=== PATIENT | male | born 1960 | race Hispanic/Latino ===

== ENCOUNTER 2017-10-04 09:49 | Day surgery (SDC) | payer MEDICARE, MEDICAID ==
[2017-10-04 11:49] LABS: Anion Gap 15 mmol/L (10-20); BUN (Urea Nitrogen) 14 mg/dL (8.4-25.7); Calc. Creatinine Clearance 0 mL/min (70-130); Calcium 8.6 mg/dL (7.8-10.44); Carbon Dioxide 21 mmol/L (22-29); Chloride 109 mmol/L (98-107); Estimated GFR-MDRD 89; Glucose 91 mg/dL (70-105); Potassium 4.5 mmol/L (3.5-5.1); Sodium 140 mmol/L (136-145)
--- NOTE | 2017-10-04 12:07 | RAD ---
CHEST 1 VIEW: Date: 10/04/17 HISTORY: Preop. COMPARISON: Chest radiograph dated 07/25/14. FINDINGS: Lungs are clear. No pneumothorax or effusion. Cardiac silhouette and mediastinal contours within norm al limits. IMPRESSION: No acute intrathoracic abnormality. POS: [facility]
[2017-10-04 12:37] LABS: #Basophils 0.1 thou/uL (0.0-0.2); #Eosinphils 1.4 thou/uL (0.0-0.7); #Lymphocytes 1.6 thou/uL (1.20-3.40); #Monocytes 0.4 thou/uL (0.11-0.59); #Neutrophils 4.4 thou/uL (1.40-6.50); %Basophils 1.1 % (0.0-1.0); %Eosinophils 17.8 % (0.0-10.0); %Lymphocytes 20.4 % (21.0-51.0); %Monocytes 5.4 % (0.0-10.0); %Neutrophils 55.3 % (42.0-75.0); Hemoglobin 11.8 g/dL (14.0-18.0); Mean Corpuscular HGB CONC 32.8 g/dL (32.0-36.0); Mean Corpuscular Hemoglobin 31.1 pg (27.0-31.0); Mean Corpuscular Volume 94.8 fL (78.0-98.0); Mean Platelet Volume 7.6 fL (7.4-10.4); Platelet Count 304 thou/uL (130-400)
[2017-10-04 14:50] LABS: Bilirubin Negative (Negative); Blood, Urine Negative (Negative); Clarity CLEAR (Clear); Glucose, Urine (Dipstick) Negative (Negative); Leukocyte Negative (Negative); Nitrite Negative (Negative); Protein, Urine (Dipstick) Negative (Neg-Trace); Specific Gravity, Urine 1.014 (1.002-1.036)
[2017-10-04 14:52] LABS: Bacteria/HPF None Seen HPF (None Seen); Hyaline Casts/LPF 0-3 HYALINE CAST LPF (0-3 Hyaline); Pathc Cast-AUWi Flag 0.29 (0-2.49); Squamous Epithelial 0-3 HPF (0-3); WBC/HPF 0-3 HPF (0-3)
[2017-10-04 15:03] LABS: RBC/HPF 0-3 HPF (0-3)
[2017-10-04] MEDS ORDERED: Betamet Acet/Betamet Na Ph 30 MG/5 ML VIAL ONE (16:14)
[2017-10-04] MEDS ORDERED: Bacitracin Zinc Ointment 30 gm TUBE ONE (16:14)
[2017-10-04] MEDS ORDERED: Bupivacaine PF 0.5% 30 ML VIAL ONE (16:14)
[2017-10-04] MEDS ORDERED: HYDROmorphone 2 MG/ML VIAL ONE (16:16)
[2017-10-04] MEDS ORDERED: Fentanyl 100 MCG/2 ML VIAL ONE (16:28)
[2017-10-04] MEDS ORDERED: HYDROcodone/Acetaminophen 5/325 mg Tablet ONE (18:44)
--- NOTE | 2017-10-05 04:06 | OP ---
PREOPERATIVE DIAGNOSES: Right carpal tunnel syndrome with previous surgery and probable scarring. FINDINGS: Very thick scar distal and central portion of transcarpal ligament with flattening, stippl ing and hourglass formation of the distal half of the median nerve at carpal canal, where the transca rpal ligament had regrown at the previous release. PROCEDURES PERFORMED: 1. Carpal tunnel release. 2. Median nerve neuroplasty proximal to the carpal tunnel in order to identify the nerve outside the carpal tunnel for release. 3. Tenotomy of the retinaculum. 4. Application of a neural wrap. 5. Celestone, the neural wrap was 10 mm x 4 cm. ESTIMATED BLOOD LOSS: 10 mL. TOURNIQUET TIME: 21 minutes. DESCRIPTION OF PROCEDURE: After successful general LMA technique, patient had the limb prepped and d raped. The patient had the surgery, indicated because he had recurrent carpal tunnel syndrome, faile d conservative treatment at the previous release in the patient, who has a weightbearing upper extrem ity due to lower extremity loss from multiple sclerosis. Timeout was done, appropriate limb was prepped and draped and the limb exsanguinated. He received pr eoperative antibiotics. The tourniquet was inflated to 250 mmHg pressure. We then outlined an incis ion approximately 2 cm proximal to the previous incision, so we could find the median nerve in a posi tion, where it was known to have dissected through the transcarpal ligament. This was important stef use the transcarpal ligament was so tight, the median nerve was compressed over 50% within the carpal canal and stippling was seen. So, the incision was completed to the volar wrist flexion crease and we identified the median n erve here, began to release and we noticed that as we entered into primary carpal canal. The transca rpal ligament had regrown, we were on to the palmaris and we then began to release to accomplish a Be aver blade and tenotomy scissors. Once we released it to the motor nerve, median takeoff point which was at the end of the tunnel, we began to inspect the nerve and found a 2 cm area of stippling, flat ness, and compression without hourglass formation. We then placed 3 mL of Celestone drip technique i n the nerve, dissect the ulnar nerve completely and then passed a previously soaked in normal saline, neural conduit and secured with three 6-0 Prolenes. The patient then had tourniquet deflated. Hemo stasis obtained. We then closed the wound using an interrupted 4-0 nylon in a mattress pattern, daniellei makenna. The patient had a bulky dressing applied. No splint, left the operating room with pink digi ts and 1-second refill.
--- NOTE | 2017-10-06 16:43 | EKG ---
Test Reason : PREOP Blood Pressure : / mmHG Vent. Rate : 080 BPM Atrial Rate : 080 BPM P-R Int : 136 ms QRS Dur : 084 ms QT Int : 414 ms P-R-T Axes : 069 047 067 degrees QTc Int : 477 ms Normal sinus rhythm Nonspecific T wave abnormality Prolonged QT Abnormal ECG Confirmed by LUIS ALFREDO HENRY ([id number]) on 10/06/2017 4:43:31 PM Referred By: RIDGE Confirmed By:LUIS ALFREDO HENRY
== END 2017-10-04 19:00 | disposition home or self-care (01) ==
LOC: SDC 09:49
PROVIDERS: ATTEND Orthopaedic Surgery Hand Surgery
PROC: 01N50ZZ Release Median Nerve, Open Approach (ICD-10-PCS; principal; 2017-10-04)
PROC: 0LN70ZZ Release Right Hand Tendon, Open Approach (ICD-10-PCS; 2017-10-04)
DX: G56.01 Carpal tunnel syndrome, right upper limb (principal); I10 Essential (primary) hypertension; E03.9 Hypothyroidism, unspecified; E78.5 Hyperlipidemia, unspecified
CPT/HCPCS: 36415; 71045; 80048; 81001; 85025; 93005; 93010; J0702; J1170; J3010; J3490; S0020

== ENCOUNTER 2018-02-01 07:40 | Emergency (ER) | payer MEDICARE, OTHER ==
[2018-02-01 09:03] LABS: #Eosinphils 0.5 thou/uL (0.0-0.7); #Lymphocytes 1.3 thou/uL (1.20-3.40); #Monocytes 0.4 thou/uL (0.11-0.59); #Neutrophils 13.5 thou/uL (1.40-6.50); %Basophils 0.2 % (0.0-1.0); %Eosinophils 3.4 % (0.0-10.0); %Lymphocytes 8.5 % (21.0-51.0); %Monocytes 2.3 % (0.0-10.0); %Neutrophils 85.6 % (42.0-75.0); Hemoglobin 11.3 g/dL (14.0-18.0); Mean Corpuscular HGB CONC 32.6 g/dL (32.0-36.0); Mean Corpuscular Hemoglobin 30.7 pg (27.0-31.0); Mean Corpuscular Volume 94.3 fL (78.0-98.0); Mean Platelet Volume 7.6 fL (7.4-10.4); Platelet Count 325 thou/uL (130-400); RBC Distribution Width 11.9 % (11.5-14.5); Red Blood Cell (RBC) Count 3.69 mill/uL (4.70-6.10); White Blood Cell (WBC) Count 15.7 thou/uL (4.8-10.8)
[2018-02-01 09:10] LABS: INR-International Normal Ratio 1.1; PTT 32.8 SEC (22.9-36.1); Prothrombin Time 14.7 SEC (12.0-14.7)
--- NOTE | 2018-02-01 09:21 | CT ---
HEAD CT WITHOUT CONTRAST: Date: 02/01/18 COMPARISON: 07/05/12. HISTORY: Bilateral extremity weakness. History of brain abscess and multiple sclerosis. FINDINGS: No parenchymal hemorrhage. No extra-axial hematoma. No midline shift. Basilar cisterns are patent. Ag e-appropriate brain volume. Stable malacic changes involving the left frontal lobe. Stable hypoattenu ation in the posterior right and anterior right centrum semiovale and wiley radiata. Calvarium is intact. Adequate aeration of the sinuses and mastoid air cells. IMPRESSION: No acute intracranial process. Given patient's history, further evaluation with brain MRI is recommen ded, utilizing a MS protocol. POS: [facility]
--- NOTE | 2018-02-01 09:24 | RAD ---
FRONTAL VIEW CHEST: Date: 02/01/18 COMPARISON: 10/04/17. INDICATION: Dyspnea. FINDINGS: The lungs are clear. There is no effusion or pneumothorax. Cardiac silhouette is stable, accentuated by portable technique. There is osseous degenerative change. IMPRESSION: No focal consolidation. POS: [facility]
[2018-02-01 09:35] LABS: ALT (SGPT) 12 U/L (8-55); AST (SGOT) 22 U/L (5-34); Albumin 3.6 g/dL (3.5-5.0); Alkaline Phosphatase 82 U/L (40-150); Anion Gap 11 mmol/L (10-20); BUN (Urea Nitrogen) 24 mg/dL (8.4-25.7); Bilirubin, Total 0.3 mg/dL (0.2-1.2); Calc. Creatinine Clearance 0 mL/min (70-130); Calcium 8.4 mg/dL (7.8-10.44); Carbon Dioxide 22 mmol/L (22-29); Chloride 107 mmol/L (98-107); Estimated GFR-MDRD 77; Globulin 3.2 g/dL (2.4-3.5); Glucose 101 mg/dL (70-105); Potassium 4.3 mmol/L (3.5-5.1); Protein, Total 6.8 g/dL (6.0-8.3); Sodium 136 mmol/L (136-145)
[2018-02-01] MEDS ORDERED: predniSONE 20 MG TAB ONE (11:12)
== END 2018-02-01 11:23 ==
LOC: ERS 07:40
DX: G35 Multiple sclerosis (principal); N40.0 Benign prostatic hyperplasia without lower urinary tract symptoms; E03.9 Hypothyroidism, unspecified; E78.5 Hyperlipidemia, unspecified; I10 Essential (primary) hypertension; F32.9 Major depressive disorder, single episode, unspecified; Z79.899 Other long term (current) drug therapy; Z79.82 Long term (current) use of aspirin
CPT/HCPCS: 36415; 70450; 71045; 80053; 83605; 83880; 84443; 84484; 85025; 85610; 85730; 93005; 96360; J7506

== ENCOUNTER 2018-02-27 08:15 | Outpatient (CLI) | payer MEDICARE, MEDICAID ==
--- NOTE | 2018-02-27 15:52 | MRI ---
MRI BRAIN NONCONTRAST: DATE: 02/27/18 HISTORY: 57-year-old male with G35 multiple sclerosis. COMPARISON: 07/06/12. FINDINGS: This was ordered as MRI with and without contrast, but patient refused to continue after the noncontr ast portion was performed. Again demonstrated is the high, upper left frontoparietal craniotomy defect, deep to which there is a moderate size region of upper posterior left frontal lobe encephalomalacia and gliosis. There is ass ociated focal ex vacuo dilation of the superior portion of the body of the left lateral ventricle. There are numerous bilateral small and moderate sized T2 hyperintense lesions (with central intermedi ate signal intensity) throughout the bilateral wiley radiata and centrum semiovale, consistent with late stage MS. Since no contrast was given, it is not possible to determine whether there are any act ively demyelinating lesions currently. There are two focal small demyelinating plaques in the left si de of the brainstem, more specifically in the left upper nayana. One is in the left facial colliculus. The other one is located slightly anterior to it, perhaps involving the facial nucleus. There is diffuse brain parenchymal atrophy. This includes diffusely thin corpus callosum which has di ffuse contiguous signal abnormality along its undersurface. There is no restricted diffusion. No evid ence of recent intra-axial hemorrhage. The lateral and third ventricles are mildly dilated on an ex v acuo basis due to the atrophy. Previously, there was a rim-enhancing right parietal intra-axial lesion that could have been a brain abscess, less likely tumefactive demyelinating plaque. That particular lesion has been replaced with a focus of encephalomalacia and gliosis. There is no mass effect, midline shift, or extra-axial fluid collection. IMPRESSION: 1. Evidence for late stage multiple sclerosis. 2. Moderate size area of post-surgical encephalomalacia and gliosis in the left upper frontal lobe, deep to a craniotomy defect. 3. No mass effect or acute hemorrhage. 4. Patient terminated the study prior to acquisition of postcontrast images. PHILIP Davis POS: [facility]
--- NOTE | 2018-02-27 15:55 | MRI ---
PRE AND POST CONTRAST ENHANCED MRI IMAGES THORACIC SPINE: Date: 02-27-18 Comparison: 09-27-08 FINDINGS: Pre and post contrast MRI of the thoracic spine demonstrate a right sided area of abnormal newly deve loped thickening in the right flavum. This was not present on the previous exam and appears to compre ss the right posterior aspect of the T1 spinal canal. This area does not demonstrate significant enha ncement and may be associated with calcified or noncalcified area of thickening. No evidence of acute thoracic spine fracture is seen. The central canal and neural foramen are patent . Areas of posterior cord atrophy and myelomalacia changes seen posterior to the T4-5 level as well as right T7-8 cord level. These areas were preserved on the patient's previous MRI from 09-27-08. No newly developed areas of cord enhancement seen. No other areas of spinal cord infarctions seen. IMPRESSION: Areas of myelomalacia changes seen within the midthoracic cord with area of newly developed ligamentu m flavum thickening in the right T1 level. POS: [facility]
--- NOTE | 2018-02-27 16:17 | MRI ---
MRI CERVICAL SPINE WITH AND WITHOUT CONTRAST: COMPARISON: 07/07/2012. TECHNIQUE: MRI cervical spine is performed with and without intravenous Gadolinium administration. Multisequent ial, multiplanar imaging is performed. FINDINGS: Appropriate T1 marrow signal intensity of the cervical vertebrae. There is stable vertebral body hei ght throughout the cervical spine. Mild loss of vertebral height at C6 is noted. No significant STI R hyperintensity to suggest an acute process. Stable anterior bridging osteophyte at C5-C6. Stable fusion changes at C3-C4. On the postcontrast images, there is no pathologic enhancement of the verte bral bodies. There is no abnormal enhancement of the visualized brain parenchyma. There is no abnormal enhancement of the visualized cervical cord. There is decreased volume with T2 hyperintensity involving the cervical cord starting at approximatel y the C3-C4 disk space and extending inferiorly to the level of the inferior end plate of C4. The ov erall extent of involvement is less than the previous examination. Previously, there was evident of active enhancement and cord expansion. Currently, there is volume loss without evidence of cord expa nsion. Additionally, there is abnormal signal intensity noted in the distal cervical cord and upper thoracic cord at the level of C7-T1. No associated enhancement. There are varying degrees of central canal stenosis and foraminal narrowing. C2-C3: No high-grade central canal stenosis. Right neural foramen is patent. Mild left foraminal n arrowing. C3-C4: BROAD-BASED disk-osteophyte ridge without significant central canal stenosis. Right neural f oramen is minimally narrowed. The left neural foramen is patent. C4-C5: There is a central osteophyte complex that abuts the thecal sac. No significant central naeem l stenosis. Neural foramina are patent. C5-C6: There is a central disk-osteophyte complex that effaces the ventral subarachnoid space. No s ignificant central canal stenosis. Foramen are patent. C6-C7: This is a central disk-osteophyte complex that effaces the ventral subarachnoid space. No si gnificant central canal stenosis. Foramen are patent. C7-T1: No high-grade central canal stenosis or high-grade neural foraminal narrowing. IMPRESSION: 1. Degenerative changes of the cervical spine as above. 2. Malacic changes with abnormal signal intensity of the cord at C3, C4, and C7-T1 levels as describ ed above. Findings favor components of malacia versus changes from remote areas of demyelination. C urrently, there is no cord enhancement or cord expansion to suggest active demyelination. POS: [facility]
--- NOTE | 2018-02-27 16:39 | MRI ---
MRI LUMBAR SPINE WITH AND WITHOUT CONTRAST: DATE: 02/27/18 HISTORY: 57-year-old male with G35 multiple sclerosis. COMPARISON: 09/26/08. TECHNIQUE: Multiple sequences obtained in axial and sagittal planes, pre and post IV injection of gadolinium-bas ed contrast agent: 20 mL MultiHance. FINDINGS: Urinary bladder is distended on the current study, unlike the prior. Vertebral body heights are maint ained. No bone marrow signal abnormality. For the purposes of this report, it will be assumed that th ere are five lumbar-type vertebrae. T2 hyperintensity within the intervertebral discs are present at almost all levels, most extensively involving T11-12, L2-3, and L5-S1; and more in a patchy, heteroge neous distribution at L1-2, L3-4, and L4-5. There are regions of patchy enhancement within the interv ertebral disc spaces, throughout all levels. There is no associated enhancement of the end plates, an d these represent extensive annular tears of the discs. There is no abnormal extramedullary-intradura l, or extradural, enhancement. No intramedullary enhancement in the visualized portions of the lower spinal cord. Conus medullaris terminates at T12. Spinal canal is diffusely small in caliber on a crystal enital basis due to developmentally short pedicles. This is exacerbated by lumbar spondylosis as desc ribed below. Degenerative right posterior element hypertrophy at T12 is only demonstrated on sagittal images. Axia l images were not obtained through this level. T12-L1: No central stenosis. Moderate right neural foraminal stenosis. Mild left neural foraminal st enosis. Bilateral moderate degenerative facet changes. L1-2: Mild diffuse disc bulge-osteophytic bar complex. Disc-osteophyte complex is larger at the righ t paracentral and right lateral area, which mildly effaces the ventral aspect of the thecal sac. Mild central stenosis. Mild to moderate right neural foraminal stenosis. No significant left neural saeid inal stenosis. No interval change. L2-3: The previously prominent posterior epidural fat pad has slightly involuted. This has resulted in slight interval increase in the caliber of the thecal sac, which is currently moderately stenotic. Indentation of the thecal sac by central disc-osteophyte complex. Mild to moderate central spinal ca nal stenosis. No high grade neural foraminal stenosis. L3-4: Diffuse disc bulge/broad osteophytic bar complex indents the ventral surface of the thecal sac . Mildly prominent posterior epidural fat pad. Moderate central spinal canal stenosis. Moderate to se corazon thecal sac stenosis. Moderate right neural foraminal stenosis. Moderate to severe left neural fo raminal stenosis is worse than previously. L4-5: Prominent diffuse disc bulge-osteophytic bar complex indents the ventral aspect of the spinal canal. Moderate bilateral ligamentum flavum thickening and degenerative facet hypertrophy. Moderate t o severe central spinal canal stenosis. Prominent posterior epidural fat pad. Severe thecal sac steno sis. Moderate to severe bilateral neural foraminal stenosis, right greater than left. Neural foramina l stenosis is worse than previously. Degree of central spinal canal stenosis is similar. Moderate robert ateral degenerative facet changes. L5-S1: No central stenosis. No neural foraminal stenosis. IMPRESSION: 1. Lumbar spondylosis with multilevel moderate degenerative disc disease and facet osteoarthrosis. 2. Multilevel central and neural foraminal stenosis of varying degrees. 3. Severe thecal sac stenosis at L4-5. 4. Distended urinary bladder. 5. No abnormal intradural enhancement. JN R POS: [facility]
[2018-02-27] MEDS ORDERED: Gadobenate Dimeglumine 529 MG/1 ML (20ML VIAL) ONE (16:59)
[2018-03-01] MEDS ORDERED: Gadobenate Dimeglumine 529 MG/1 ML (20ML VIAL) ONE (16:59)
== END 2018-02-27 08:16 | disposition home or self-care (01) ==
LOC: MRI 08:15 → EDSTATUS 09:15
PROVIDERS: ATTEND Nurse Practitioner Acute Care
DX: G35 Multiple sclerosis (principal); M47.816 Spondylosis without myelopathy or radiculopathy, lumbar region; M51.36 Other intervertebral disc degeneration, lumbar region; M48.061 Spinal stenosis, lumbar region without neurogenic claudication; N32.89 Other specified disorders of bladder; M47.812 Spondylosis without myelopathy or radiculopathy, cervical region; G95.89 Other specified diseases of spinal cord; G93.89 Other specified disorders of brain; Z98.890 Other specified postprocedural states
CPT/HCPCS: 70551; 70553; 72156; 72157; 72158

== ENCOUNTER 2018-06-02 20:52 | Emergency (ER) | payer MEDICARE, MEDICAID ==
[2018-06-02 21:29] LABS: #Basophils 0.1 thou/uL (0.0-0.2); #Eosinphils 0.4 thou/uL (0.0-0.7); #Monocytes 0.4 thou/uL (0.11-0.59); #Neutrophils 4.5 thou/uL (1.40-6.50); %Basophils 1.1 % (0.0-1.0); %Lymphocytes 27.6 % (21.0-51.0); %Monocytes 4.8 % (0.0-10.0); %Neutrophils 61.5 % (42.0-75.0); Hemoglobin 11.8 g/dL (14.0-18.0); Mean Corpuscular HGB CONC 31.9 g/dL (32.0-36.0); Mean Corpuscular Hemoglobin 29.9 pg (27.0-31.0); Mean Corpuscular Volume 93.6 fL (78.0-98.0); Mean Platelet Volume 7.3 fL (7.4-10.4); Platelet Count 454 thou/uL (130-400); RBC Distribution Width 12.1 % (11.5-14.5); Red Blood Cell (RBC) Count 3.95 mill/uL (4.70-6.10); White Blood Cell (WBC) Count 7.3 thou/uL (4.8-10.8)
--- NOTE | 2018-06-02 21:36 | RAD ---
XR Chest 1 View Portable HISTORY: Chest pain COMPARISON: 02/01/2018 FINDINGS: The heart size is normal. The lungs are well expanded without focal areas of consolidation, pneumothorax or pleural effusions. IMPRESSION: No radiographic evidence of acute cardiopulmonary process.
[2018-06-02 21:48] LABS: ALT (SGPT) 12 U/L (8-55); AST (SGOT) 18 U/L (5-34); Albumin 3.8 g/dL (3.5-5.0); Alkaline Phosphatase 92 U/L (40-150); Anion Gap 12 mmol/L (10-20); BUN (Urea Nitrogen) 19 mg/dL (8.4-25.7); Bilirubin, Total 0.2 mg/dL (0.2-1.2); Calc. Creatinine Clearance 0 mL/min (70-130); Calcium 8.9 mg/dL (7.8-10.44); Carbon Dioxide 26 mmol/L (22-29); Chloride 107 mmol/L (98-107); Estimated GFR-MDRD 80; Globulin 3.7 g/dL (2.4-3.5); Glucose 96 mg/dL (70-105); Potassium 4.3 mmol/L (3.5-5.1); Protein, Total 7.5 g/dL (6.0-8.3); Sodium 141 mmol/L (136-145)
== END 2018-06-03 00:27 ==
LOC: ERS 20:52
DX: R07.9 Chest pain, unspecified (principal); N40.0 Benign prostatic hyperplasia without lower urinary tract symptoms; E03.9 Hypothyroidism, unspecified; E78.5 Hyperlipidemia, unspecified; I10 Essential (primary) hypertension; F32.9 Major depressive disorder, single episode, unspecified; Z79.899 Other long term (current) drug therapy; Z79.01 Long term (current) use of anticoagulants; Z79.82 Long term (current) use of aspirin
CPT/HCPCS: 71045; 80053; 84484; 85025; 93005

== ENCOUNTER 2018-11-26 02:51 | Emergency (ER) | payer MEDICARE, OTHER ==
[2018-11-26 03:46] LABS: #Basophils 0.1 thou/uL (0.0-0.2); #Eosinphils 0.3 thou/uL (0.0-0.7); #Lymphocytes 1.1 thou/uL (1.20-3.40); #Monocytes 0.4 thou/uL (0.11-0.59); #Neutrophils 3.5 thou/uL (1.40-6.50); %Lymphocytes 21.5 % (21.0-51.0); %Monocytes 7.5 % (0.0-10.0); %Neutrophils 64.9 % (42.0-75.0); Hemoglobin 11.5 g/dL (14.0-18.0); Mean Corpuscular HGB CONC 33.1 g/dL (32.0-36.0); Mean Corpuscular Hemoglobin 31.2 pg (27.0-31.0); Mean Corpuscular Volume 94.1 fL (78.0-98.0); Platelet Count 339 thou/uL (130-400); RBC Distribution Width 12.6 % (11.5-14.5); Red Blood Cell (RBC) Count 3.68 mill/uL (4.70-6.10); White Blood Cell (WBC) Count 5.3 thou/uL (4.8-10.8)
[2018-11-26] MEDS ORDERED: Ondansetron PF 4 MG/2 ML Vial ONE (03:52)
[2018-11-26 04:04] LABS: ALT (SGPT) 15 U/L (8-55); AST (SGOT) 26 U/L (5-34); Albumin 3.8 g/dL (3.5-5.0); Alkaline Phosphatase 75 U/L (40-110); Anion Gap 11 mmol/L (10-20); BUN (Urea Nitrogen) 32 mg/dL (8.4-25.7); Bilirubin, Total 0.2 mg/dL (0.2-1.2); Calc. Creatinine Clearance 0 mL/min (70-130); Carbon Dioxide 27 mmol/L (22-29); Chloride 104 mmol/L (98-107); Estimated GFR-MDRD 90; Globulin 3.5 g/dL (2.4-3.5); Glucose 101 mg/dL (70-105); Magnesium 2.2 mg/dL (1.6-2.6); Potassium 3.7 mmol/L (3.5-5.1); Protein, Total 7.3 g/dL (6.0-8.3); Sodium 138 mmol/L (136-145)
--- NOTE | 2018-11-26 09:59 | CT ---
PRELIMINARY REPORT/[facility]/EMERGENCY AFTER HOURS PROCEDURE: PROCEDURE INFORMATION: Exam: CT Abdomen And Pelvis With Contrast Exam date and time: 11/26/2018 4:19 AM Clinical history: 58 years old, male; Abdominal pain; Prior surgery; Surgery type: Cholecystectomy; P atient HX: Er 13. M58 w/ HX of ms presents to the ED for evaluation of nausea, vomiting, diarrhea x 5 days. PT states diarrhea is non stop. PT states his last episode of vomiting was today. PT also rep orts abdominal distention. TECHNIQUE: Imaging protocol: Computed tomography of the abdomen and pelvis with intravenous contrast. COMPARISON: No relevant prior studies available. FINDINGS: Liver: Normal. No mass. Gallbladder and bile ducts: Prior cholecystectomy. Pancreas: Normal. No ductal dilation. Spleen: Normal. No splenomegaly. Adrenals: Normal. No mass. Kidneys and ureters: Normal. No hydronephrosis. Stomach and bowel: Fluid throughout the lumen of the distal small bowel and colon, nondilated, sugges ting gastroenteritis or malabsorption. No bowel wall thickening or intestinal obstruction. Appendix: Normal appendix. Intraperitoneal space: No pneumoperitoneum or abscess. Vasculature: No pneumatosis or portal/mesenteric venous gas. Lymph nodes: Mildly prominent bilateral inguinal lymph nodes do not exceed 1 cm in short axis. Bladder: Unremarkable as visualized. Reproductive: Unremarkable as visualized. Bones/joints: Unremarkable. No acute fracture. Soft tissues: Small umbilical hernia containing fat only. IMPRESSION: Fluid throughout the lumen of the distal small bowel and colon, nondilated, suggesting gastroenteriti s or malabsorption. Thank you for allowing us to participate in the care of your patient. Dictated and Authenticated by: Angel Owens MD 11/26/2018 4:58 AM Central Time ([place] & [place]) FINAL REPORT EMERGENCY AFTER HOURS STUDY CT ABDOMEN WITH CONTRAST CT PELVIS WITH CONTRAST: DATE: 11/26/2018. HISTORY: 58-year-old male with nausea, vomiting, and diarrhea. TECHNIQUE: IV injection of iodinated contrast media: Administered. Oral contrast media:Not administered. FINDINGS: Liver: No focal solid mass. Spleen: No splenomegaly.. Pancreas: No mass or surrounding fat stranding.. Adrenals: No mass.. Kidneys: No hydronephrosis or enhancement abnormalities.. 4 x 2 x 2 mm calculus at left renal lower p ole calyx. Ureters: No dilation. Bladder: No pathology identified. Abdominal aorta: No aneurysm. Small bowel: No dilation. Intraluminal fluid. Colon: No adjacent fat stranding. Appendix: No dilation or adjacent fat stranding.. No mural thickening. Intraluminal fluid. Free air: None. Free fluid: None. Agree with preliminary report by [facility]. IMPRESSION: 1. No major pathology identified.. 2. Mild nephrolithiasis consisting of a single tiny 4 x 2 x 2 mm calculus in the left kidney. 3. Fluid throughout bowel: Malabsorption, perhaps due to gastroenteritis. Transcribed Date/Time: 11/26/2018 10:10 AM
== END 2018-11-26 06:15 | disposition home or self-care (01) ==
LOC: ERS 02:51
DX: K52.9 Noninfective gastroenteritis and colitis, unspecified (principal); I10 Essential (primary) hypertension; E78.5 Hyperlipidemia, unspecified; F32.9 Major depressive disorder, single episode, unspecified; Z79.899 Other long term (current) drug therapy; Z79.01 Long term (current) use of anticoagulants; Z79.82 Long term (current) use of aspirin
CPT/HCPCS: 36415; 74177; 80053; 83735; 85025; 96361; 96374; J2405

== ENCOUNTER 2018-12-13 13:43 | Observation (INO) | payer MEDICARE, OTHER ==
[2018-12-13 14:33] LABS: Hemoglobin 11.1 g/dL (14.0-18.0); Mean Corpuscular HGB CONC 32.7 g/dL (32.0-36.0); Mean Corpuscular Hemoglobin 29.9 pg (27.0-31.0); Mean Corpuscular Volume 91.5 fL (78.0-98.0); Platelet Count 359 thou/uL (130-400); RBC Distribution Width 12.3 % (11.5-14.5); White Blood Cell (WBC) Count 19.2 thou/uL (4.8-10.8)
[2018-12-13 14:42] LABS: ALT (SGPT) 16 U/L (8-55); AST (SGOT) 28 U/L (5-34); Albumin 3.9 g/dL (3.5-5.0); Alkaline Phosphatase 77 U/L (40-110); Anion Gap 13 mmol/L (10-20); BUN (Urea Nitrogen) 24 mg/dL (8.4-25.7); Bilirubin, Total 0.3 mg/dL (0.2-1.2); Calc. Creatinine Clearance 0 mL/min (70-130); Calcium 8.6 mg/dL (7.8-10.44); Carbon Dioxide 24 mmol/L (22-29); Chloride 101 mmol/L (98-107); Estimated GFR-MDRD 59; Globulin 3.4 g/dL (2.4-3.5); Glucose 97 mg/dL (70-105); Potassium 4.5 mmol/L (3.5-5.1); Protein, Total 7.3 g/dL (6.0-8.3); Sodium 133 mmol/L (136-145)
[2018-12-13 14:43] LABS: Band 45 % (5-11); Lymphocytes 8 % (21-51); MDiff Complete? YES; Monocytes 7 % (0-10); Neutrophil 40 % (42-75); Platelet Morphology Comment Appears Adequate; Polychromasia SLIGHT = 2-3 cells (100X) (0-2/hpf); Reflex for Review?? YES
--- NOTE | 2018-12-13 15:53 | RAD ---
XR Chest 1 View Portable History: Emergency exam. Comparison: Chest radiograph May 2018 Findings: Lungs are clear. No pneumothorax or effusion. Cardiac silhouette and mediastinal contours a re within normal limits. Right rotator cuff arthropathy. Impression: No acute intrathoracic abnormality.
[2018-12-13 16:48] LABS: Bacteria/HPF 4+ HPF (None Seen); Bilirubin Negative (Negative); Blood, Urine Negative (Negative); Clarity Turbid (Clear); Glucose, Urine (Dipstick) Normal (Negative); Leukocyte 75 Leu/uL (Negative); Nitrite Negative (Negative); Protein, Urine (Dipstick) 20 mg/dL (Neg-Trace); RBC/HPF 0-3 HPF (0-3); Squamous Epithelial 0-3 HPF (0-3)
[2018-12-13] MEDS ORDERED: Piperacillin/Tazobactam 4.5 GM VIAL ONE (17:54)
[2018-12-13 19:40] VITALS: BMI 34.6
[2018-12-13] MEDS ORDERED: Acetaminophen 325 MG TAB PO PRN (20:21)
[2018-12-13] MEDS ORDERED: Senokot S 8.6-50 MG TAB PO PRN (20:21)
[2018-12-13] MEDS ORDERED: Ondansetron ODT 4 MG TAB PO PRN (20:21)
[2018-12-13] MEDS: Vancomycin 1.5 GRAM/300 ML BAG 1.5 GM in Premix Bag 1 BAG IVPB SCH (20:48)
[2018-12-13] MEDS ORDERED: diphenhydrAMINE 25 MG CAP PO PRN (20:50)
[2018-12-13] MEDS ORDERED: Simethicone Chewable 80 MG TAB PO PRN (20:50)
[2018-12-13] MEDS ORDERED: Cepastat Lozenges 1 LOZ PO PRN (20:50)
[2018-12-13] MEDS ORDERED: AZELASTINE HCL EA EYE SCH (21:00)
[2018-12-13] MEDS: Fenofibrate Nanocrystallized 145 MG TAB PO SCH (21:42)
[2018-12-13] MEDS: Diclofenac Sodium 50 MG DR TAB PO SCH (21:43)
[2018-12-13] MEDS: Pravastatin Sodium 40 MG TAB PO SCH (21:43)
[2018-12-13] MEDS: Ezetimibe 10 MG TAB PO SCH (21:43)
[2018-12-13] MEDS: Famotidine 20 MG TAB PO SCH (21:43)
[2018-12-13] MEDS: Escitalopram Oxalate 20 mg Tablet PO SCH (21:43)
[2018-12-13] MEDS: Baclofen 10 MG TAB PO SCH (21:43)
[2018-12-13] MEDS: Apixaban 5 MG TAB PO SCH (21:44)
[2018-12-13] MEDS: carBAMazepine 200 MG TAB PO SCH (21:44)
[2018-12-13] MEDS: cycloSPORINE 0.05% Ophthalmic Droperette EA EYE SCH (21:51)
[2018-12-13] MEDS: Artificial Tears 18 DROP/0.9 ML EA EYE SCH (22:06)
[2018-12-13] MEDS ORDERED: Sodium Chloride 0.9% 1,000 ML IV SCH (23:00)
[2018-12-13] MEDS: Piperacillin/Tazobactam 4.5 GM in Sodium Chloride 0.9% 100 ML IVPB SCH (23:35)
[2018-12-13] MEDS: Gabapentin 300 MG CAP PO SCH (23:35)
--- NOTE | 2018-12-14 00:29 | HP ---
PRIMARY CARE PHYSICIAN: Dr. Boucher. NEUROLOGIST: Dr. Jean. CHIEF COMPLAINT: Weakness, nausea. HISTORY OF PRESENT ILLNESS: Mr. Aceves is a 58-year-old man who is a resident of [facility], reports that he got up as usual this morning, was not felt well, but he got up, uses a wheelchair for ambulation. Reports that he usually insists the MA to get dressed. He got in his wheelchair, was going down to the cafeteria for breakfast. Reports that he felt generally weak, a little nauseous, felt like he was going to "pass out." Made it into the dining room, was sitting and having breakfast and reports that some of the people around him said that he did not look well. Nurse came over and checked him out, asked him 1 or 2 questions and then called EMS. The patient has past medical history pertinent for BPH, brain abscess, umbilical hernia, hypothyroidism, hyperlipidemia, hypertension, multiple sclerosis, generalized seizures, trigeminal neuralgia, carpal tunnel on the right, hypertension. He denied any really specific complaints other than generalized weakness and was given some Zofran by EMS on the way here and reports that it resolved the nausea. Denies any abdominal pain, vomiting, constipation, or diarrhea. On evaluation here, UA with turbid with leukocytes, white blood cells, and +4 bacteria. Chest x-ray was done, showed no acute process. Troponin undetectable. Magnesium 2. CK at 205. However, the white blood cell count was 19.2, hemoglobin 11.1, hematocrit 33.8, neutrophils 40, bands 45, leukocytes 8. Sodium at 133, otherwise chemistry was unremarkable. The patient was given some Zosyn in the emergency room and admitted to the medical floor for further management. REVIEW OF SYSTEMS: The patient reports generalized weakness. Denies any abdominal pain, constipation, or diarrhea. Does report some nausea. Denies vomiting. Denies any focal numbness, tingling, weakness in any of his extremities. Reports that he just feels "ill." All systems are reviewed and are negative unless mentioned in the HPI. PAST MEDICAL HISTORY: Please see HPI. PAST SURGICAL HISTORY: Craniotomy, cholecystectomy, neck surgery, right shoulder surgery, carpal tunnel. PSYCHIATRIC HISTORY: Depression. SOCIAL HISTORY: Lives in [facility]. Denies any alcohol or drug use. No smoking history. ALLERGIES: MOE INHIBITORS. CURRENT MEDICATIONS: 1. Tylenol 1000 mg p.o. q.6 hours as needed. 2. Eliquis 5 mg p.o. b.i.d. 3. Artificial Tears two drops each eye q.i.d. 4. Aspirin 325 mg p.o. daily. 5. Azelastine 0.05% ophthalmic solution one drop each eye b.i.d. 6. Baclofen 10 mg p.o. b.i.d. 7. Cepastat one lozenge q.i.d. p.r.n. 8. Diclofenac 50 mg p.o. t.i.d. 9. Benadryl 25 mg p.o. q.6 hours p.r.n. 10. Surfak 240 mg p.o. daily. 11. Lexapro 20 mg p.o. at bedtime. 12. Aptiom 400 mg p.o. daily. 13. Zetia 10 mg p.o. at bedtime. 14. Fenofibrate 145 mg p.o. at bedtime. 15. Neurontin 600 mg p.o. q.6 hours. 16. Robitussin DM 10 mL p.o. q.6 hours as needed. 17. Hydrocortisone ointment 0.5% topical daily as needed. 18. Motrin 400 mg p.o. b.i.d. p.r.n. 19. Tirosint 25 mcg p.o. daily. 20. Loperamide 2 mg p.o. q.i.d. 21. Milk of magnesia 30 mL p.o. daily p.r.n. 22. Multivitamin one capsule p.o. daily. 23. Nystatin one application p.o. topical b.i.d. 24. Pataday one drop each eye p.o. daily p.r.n. 25. Zofran 4 mg p.o. q.8 hours p.r.n. 26. Vaseline one application topically daily p.r.n. 27. Pravastatin 40 mg p.o. at bedtime. 28. Restasis one drop each eye b.i.d. 29. Simethicone 80 mg p.o. q.i.d. p.r.n. 30. Verapamil SR 360 mg p.o. at bedtime. 31. Avodart 0.5 mg p.o. daily. PHYSICAL EXAMINATION: VITAL SIGNS: Blood pressure 136/77, pulse is 90, respirations are 18, temperature is 98.5, pO2 sats are 97% on room air. CONSTITUTIONAL: The patient appears pain free. He is alert and oriented to person, place, and time. HEENT: Head is atraumatic and normocephalic. Eyes, pupils are equally round and reactive to light. Extraocular muscles are intact. ENT, mouth exam is normal. Mucous membranes are moist. NECK: Trachea is midline. No tenderness. RESPIRATORY/CHEST: Breath sounds are clear. Chest expansion is equal. CARDIOVASCULAR: Heart rate is regular rate and rhythm. Heart sounds are normal. ABDOMEN: Nontender. Has a small easily reducible umbilical hernia. Bowel sounds are heard. BACK: Normal range of motion. Has a stage I decubitus ulcer, sacral. EXTREMITIES: Upper extremities; normal range of motion, motor strength is normal, radial pulses are normal. Lower extremities; normal range of motion, motor strength is normal, pedal pulses are normal. NEUROLOGICAL: The patient is oriented to person, place, and time. Speech is normal. SKIN: Warm and dry in color. Stage I decubitus as stated above. LABORATORY DATA: EKG in the emergency room shows normal sinus rhythm, beats per minute 85. ST segments are normal. T-waves are nonspecific. Hawi is normal. ASSESSMENT AND PLAN: 1. Generalized weakness with leukocytosis. Zosyn was started in the emergency room. Possibility of a urinary tract infection. We will do broad-spectrum coverage for now. Blood cultures and urine cultures are pending. Zosyn and vancomycin could deescalate as cultures return. Lactic acid is 1.3. CBC and comprehensive metabolic panel in the morning. 2. Multiple sclerosis. Last MRI done in February 2018 shows later stages of multiple sclerosis. We will repeat the brain MRI in the a.m. looking for a multiple sclerosis flare and ask Neurology, Dr. Jean to consult. The patient sees Dr. Jean as an outpatient basis. He reports he does not take any medications for it currently. Does have some baclofen for some relief of the muscles spasms. 3. Hyperlipidemia. We will restart home medications. 4. Hypothyroidism. We will check a TSH. Restart home medications. 5. Hypertension. Restart home medications. 6. Generalized seizure disorder. Restart home medications. Appears stable. We will monitor. 7. Deep venous thrombosis and gastrointestinal prophylaxis have been started. Case discussed with Dr. Borges who agrees with plan. Clinical course dependent on clinical findings. Job ID: [id number]
[2018-12-14 05:36] LABS: #Eosinphils 0.4 thou/uL (0.0-0.7); #Lymphocytes 2.1 thou/uL (1.20-3.40); #Monocytes 0.3 thou/uL (0.11-0.59); #Neutrophils 9.8 thou/uL (1.40-6.50); %Basophils 0.3 % (0.0-1.0); %Eosinophils 2.8 % (0.0-10.0); %Lymphocytes 16.6 % (21.0-51.0); %Monocytes 2.7 % (0.0-10.0); %Neutrophils 77.7 % (42.0-75.0); Hemoglobin 9.9 g/dL (14.0-18.0); Mean Corpuscular HGB CONC 32.1 g/dL (32.0-36.0); Mean Corpuscular Hemoglobin 30.2 pg (27.0-31.0); Mean Corpuscular Volume 93.9 fL (78.0-98.0); Mean Platelet Volume 6.8 fL (7.4-10.4); Platelet Count 322 thou/uL (130-400); RBC Distribution Width 12.2 % (11.5-14.5); Red Blood Cell (RBC) Count 3.27 mill/uL (4.70-6.10); White Blood Cell (WBC) Count 12.6 thou/uL (4.8-10.8)
[2018-12-14] MEDS: Piperacillin/Tazobactam 4.5 GM in Sodium Chloride 0.9% 100 ML IVPB SCH ×3 (05:39→18:01)
[2018-12-14] MEDS: Gabapentin 300 MG CAP PO SCH ×3 (05:39→18:02)
[2018-12-14 06:02] LABS: ALT (SGPT) 16 U/L (8-55); AST (SGOT) 32 U/L (5-34); Albumin 3.3 g/dL (3.5-5.0); Alkaline Phosphatase 65 U/L (40-110); Anion Gap 15 mmol/L (10-20); BUN (Urea Nitrogen) 30 mg/dL (8.4-25.7); Bilirubin, Total 0.2 mg/dL (0.2-1.2); Calc. Creatinine Clearance 82 mL/min (70-130); Calcium 8.1 mg/dL (7.8-10.44); Carbon Dioxide 24 mmol/L (22-29); Chloride 104 mmol/L (98-107); Estimated GFR-MDRD 53; Globulin 3.7 g/dL (2.4-3.5); Glucose 109 mg/dL (70-105); Sodium 138 mmol/L (136-145)
[2018-12-14] MEDS ORDERED: guaiFENesin/Dextromethorphan 10 ML UDCUP PO PRN (08:15)
[2018-12-14] MEDS ORDERED: HYDROCORTISONE TOP PRN (08:15)
[2018-12-14] MEDS ORDERED: Acetaminophen 325 MG TAB PO PRN (08:15)
[2018-12-14] MEDS ORDERED: Milk Of Magnesia 30 ML UDCUP PO PRN (08:15)
[2018-12-14] MEDS ORDERED: Hydrocortisone 1% Cream 30 GM TUBE TOP PRN (08:27)
[2018-12-14] MEDS: Levothyroxine Sodium 25 MCG TAB PO SCH (08:28)
[2018-12-14] MEDS ORDERED: Nystatin Ointment 15 GM TUBE TOP SCH (09:00)
[2018-12-14] MEDS ORDERED: Ketotifen Fumarate 0.025% Ophth Soln 5 ml Bottle EA EYE PRN (09:00)
[2018-12-14] MEDS ORDERED: PATIENT'S HOME MEDICATION PO SCH (09:00)
[2018-12-14] MEDS: Vancomycin 1.5 GRAM/300 ML BAG 1.5 GM in Premix Bag 1 BAG IVPB SCH ×2 (09:21→20:25)
[2018-12-14] MEDS: Aspirin 325 mg Enteric Coated Tablet PO SCH (09:22)
[2018-12-14] MEDS: Baclofen 10 MG TAB PO SCH ×2 (09:22→20:31)
[2018-12-14] MEDS: carBAMazepine 200 MG TAB PO SCH ×2 (09:22→20:29)
[2018-12-14] MEDS: Dutasteride 0.5 MG CAP PO SCH (09:22)
[2018-12-14] MEDS: Artificial Tears 18 DROP/0.9 ML EA EYE SCH ×4 (09:23→20:32)
[2018-12-14] MEDS: Apixaban 5 MG TAB PO SCH ×2 (09:23→20:29)
[2018-12-14] MEDS: Famotidine 20 MG TAB PO SCH ×2 (09:23→20:30)
[2018-12-14] MEDS: Diclofenac Sodium 50 MG DR TAB PO SCH ×3 (09:23→20:33)
[2018-12-14] MEDS: Multivit, Therapeutic 1 TAB PO SCH (09:26)
[2018-12-14] MEDS: Nystatin Ointment 15 GM TUBE TOP SCH ×2 (09:27→22:00)
--- NOTE | 2018-12-14 11:12 | PDOC.HOSPP ---
- Subjective Encounter Date: 12/14/18 Encounter Time: 08:00 - Objective Vital Signs & Weight: Vital Signs (12 hours) Temp Pulse Resp BP Pulse Ox 12/14/18 08:00 98.1 F 90 22 H 119/67 93 L 12/14/18 05:00 97.7 F 75 16 112/69 92 L 12/14/18 00:00 97.6 F 80 16 120/64 96 Weight Weight 220 lb 14.4 oz I&O: 12/13/18 12/14/18 12/15/18 06:59 06:59 06:59 Intake Total 5 Balance 2135 Result Diagrams: 12/14/18 05:24 12/14/18 05:24 Radiology Reviewed by me: Yes Hospitalist ROS - Review of Systems Constitutional: denies: fever, chills, sweats, weakness, malaise, other Eyes: denies: pain, vision change, conjunctivae inflammation, eyelid inflammation, redness, other ENT: denies: ear pain, ear discharge, nose pain, nose discharge, nose congestion , mouth pain, mouth swelling, throat pain, throat swelling, other Respiratory: denies: cough, dry, shortness of breath, hemoptysis, SOB with excertion, pleuritic pain, sputum, wheezing, other Cardiovascular: denies: chest pain, palpitations, orthopnea, paroxysmal noc. dyspnea, edema, light headedness, other Gastrointestinal: reports: abdominal pain. denies: nausea, vomiting, diarrhea, constipation, melena, hematochezia, other Genitourinary: denies: dysuria, frequency, incontinence, hematuria, retention, other Musculoskeletal: denies: neck pain, shoulder pain, arm pain, back pain, hand pain, leg pain, foot pain, other Skin: denies: rash, lesions, aylin, bruising, other - Medication Medications: Active Medications Generic Name Dose Route Start Last Admin Trade Name Freq PRN Reason Stop Dose Admin Apixaban 5 mg 12/13/18 21:00 12/14/18 09:23 Eliquis PO 5 mg BID DONNY Administration Artificial Tears 2 drop 12/13/18 21:00 12/14/18 09:23 Tears Naturale EA EYE 2 drop QID DONNY Administration Aspirin 325 mg 12/14/18 09:00 12/14/18 09:22 Ecotrin PO 325 mg DAILY DONNY Administration Baclofen 10 mg 12/13/18 21:00 12/14/18 09:22 Lioresal PO 10 mg BID DONNY Administration Carbamazepine 400 mg 12/13/18 21:00 12/14/18 09:22 Tegretol PO 400 mg BID DONNY Administration Cyclosporine 0 ml 12/13/18 21:00 12/13/18 21:51 Restasis EA EYE 0.4 ml BID DONNY Administration Diclofenac Sodium 50 mg 12/13/18 21:00 12/14/18 09:23 Voltaren PO 50 mg TID DONNY Administration Dutasteride 0.5 mg 12/14/18 09:00 12/14/18 09:22 Avodart PO 0.5 mg DAILY DONNY Administration Ezetimibe 10 mg 12/13/18 21:00 12/13/18 21:43 Zetia PO 10 mg HS DONNY Administration Escitalopram Oxalate 20 mg 12/13/18 21:00 12/13/18 21:43 Lexapro PO 20 mg HS DONNY Administration Famotidine 20 mg 12/13/18 21:00 12/14/18 09:23 Pepcid PO 20 mg BID DONNY Administration Fenofibrate 145 mg 12/13/18 21:00 12/13/18 21:42 Tricor PO 145 mg HS DONNY Administration Gabapentin 600 mg 12/13/18 23:59 12/14/18 05:39 Neurontin PO 600 mg Q6HR DONNY Administration Piperacillin Sod/Tazobactam 100 mls @ 200 mls/hr 12/13/18 23:59 12/14/18 05: 39 Sod 4.5 gm/ Sodium Chloride IVPB 100 mls Q6HR DONNY Administration VANCOMYCIN 1.5 GRAM/300 ML BAG 300 mls @ 200 mls/hr 12/13/18 20:00 12/14/18 09:21 1.5 gm/ Device IVPB 300 mls 0800,2000 DONNY Administration Sodium Chloride 1,000 mls @ 75 mls/hr 12/13/18 23:00 12/13/18 23:39 Normal Saline 0.9% IV 12/14/18 12:19 1,000 mls .[id number] DONNY Administration Levothyroxine Sodium 25 mcg 12/14/18 09:00 12/14/18 08:28 Synthroid PO 25 mcg DAILY DONNY Administration Multivitamins 1 tab 12/14/18 09:00 12/14/18 09:26 Theragran PO 1 tab DAILY DONNY Administration Nystatin 0 gm 12/14/18 09:00 12/14/18 09:27 Mycostatin Ointment TOP 1 applic BID DONNY Administration Pravastatin Sodium 40 mg 12/13/18 21:00 12/13/18 21:43 Pravachol PO 40 mg HS DONNY Administration Verapamil HCl 360 mg 12/13/18 21:00 12/13/18 21:42 Calan Er PO 360 mg HS DONNY Administration - Exam General Appearance: NAD, awake alert Eye: PERRL, anicteric sclera ENT: normocephalic atraumatic, no oropharyngeal lesions Neck: supple, symmetric, no JVD, no thyromegaly Heart: RRR, no murmur, no gallops, no rubs Respiratory: CTAB, no wheezes, no rales, no ronchi Gastrointestinal: soft, non-distended, normal bowel sounds, no palpable masses, no hepatomegaly Gastrointestinal - other findings: discomfort, periumbilical hernia Extremities: no cyanosis, no clubbing, no edema Skin: normal turgor, no lesions Neurological: no new deficit Musculoskeletal: normal tone, normal strength Psychiatric: normal affect, normal behavior Hosp A/P (1) Bandemia Code(s): D72.825 - BANDEMIA Status: Acute (2) Obesity (BMI 30.0-34.9) Code(s): E66.9 - OBESITY, UNSPECIFIED Status: Chronic (3) Physical deconditioning Code(s): R53.81 - OTHER MALAISE Status: Chronic (4) Chronic progressive multiple sclerosis Code(s): G35 - MULTIPLE SCLEROSIS Status: Chronic (5) HTN (hypertension) Code(s): I10 - ESSENTIAL (PRIMARY) HYPERTENSION Status: Chronic Qualifiers: Hypertension type: essential hypertension Qualified Code(s): I10 - Essential (primary) hypertension (6) Hypothyroidism Code(s): E03.9 - HYPOTHYROIDISM, UNSPECIFIED Status: Chronic Qualifiers: Hypothyroidism type: unspecified Qualified Code(s): E03.9 - Hypothyroidism , unspecified (7) DEMI (acute kidney injury) Code(s): N17.9 - ACUTE KIDNEY FAILURE, UNSPECIFIED Status: Acute (8) Anemia, normocytic normochromic Code(s): D64.9 - ANEMIA, UNSPECIFIED Status: Chronic (9) Dyslipidemia Code(s): E78.5 - HYPERLIPIDEMIA, UNSPECIFIED Status: Chronic (10) Chronic anticoagulation Code(s): Z79.01 - DETENTION (CURRENT) USE OF ANTICOAGULANTS Status: Chronic (11) Anxiety and depression Code(s): F41.9 - ANXIETY DISORDER, UNSPECIFIED; F32.9 - MAJOR DEPRESSIVE DISORDER, SINGLE EPISODE, UNSPECIFIED Status: Chronic (12) BPH (benign prostatic hyperplasia) Code(s): N40.0 - BENIGN PROSTATIC HYPERPLASIA WITHOUT LOWER URINRY TRACT SYMP Status: Chronic Qualifiers: Lower urinary tract symptom presence: symptoms absent Qualified Code(s): N40.0 - Benign prostatic hyperplasia without lower urinary tract symptoms - Plan old records reviewed/req, continue antibiotics 12/14/18- continue IVF, as pt has abdominal pain and has bandemia, will get CT abdomen and pelvis, MRI brain ordered for his MS, neurology consulted, home medication reviewed and symptomatic treatment, will monitor one night and repeat labs tomorrow, he is on current empiric zosyn and vancomycin but source of infection unclear
--- NOTE | 2018-12-14 11:54 | MRI ---
MRI OF BRAIN WITH AND WITHOUT CONTRAST: CLINICAL HISTORY: Paresthesia, weakness, right-sided numbness. COMPARISON: 02/27/2018 brain MRI. FINDINGS: There is ex vacuo dilatation of the ventricular system most notable involving the frontal horn of the left lateral ventricle. Multifocal white matter signal abnormalities are present with associated ca vitation, although no pathologic intraaxial enhancement visualized. There is left frontal encephalom alacia. No acute territorial infarction or acute cytotoxic edema. There is parenchymal volume loss. IMPRESSION: 1. Multifocal signal alteration throughout the brain parenchyma grossly stable, including bilateral cerebral hemispheres and brainstem. No pathologic intraaxial enhancement to indicate an acute demyel inating lesion. 2. No acute territorial infarction is evident to account for a neurologic deficit. POS: [facility]
[2018-12-14] MEDS: cycloSPORINE 0.05% Ophthalmic Droperette EA EYE SCH ×2 (12:58→23:39)
--- NOTE | 2018-12-14 14:42 | CT ---
EXAM: Abdomen and pelvic CT scan with contrast: HISTORY: Abdominal pain recurrence of anterior abdominal wall hernia COMPARISON: 11/26/2018 FINDINGS: The visualized lung bases are clear. Liver: Borderline hepatomegaly. Gallbladder:Status post cholecystectomy. Pancreas:Unremarkable Spleen:Unremarkable. Adrenal glands:Unremarkable. Kidneys:Nonobstructing left renal calculus, stable. No solid or cystic renal mass. No bowel obstruction. Anterior abdominal wall periumbilical fat-containing hernia which has more fat stranding and somewhat thickened claire when compared to the 11/26/2018 study probably representing some mesenteric fat edema and congestion, which could well be consistent with history No CT evidence for acute appendicitis. The urinary bladder is unremarkable. Reproductive system:Unremarkable No abscess, adenopathy, or abnormal fluid collection within the abdomen or pelvis. IMPRESSION: Anterior abdominal wall periumbilical fat-containing hernia with fairly prominent fat stranding and s ome thickening of the wall of the hernia compared to the prior study which may well be related to the history of having prior hernia repair and recurrence. No evidence for associated abscess. Other f indings as above.
[2018-12-14] MEDS ORDERED: Iopamidol-370 76% 500 ML 1 ML ONE (15:54)
[2018-12-14] MEDS: Pravastatin Sodium 40 MG TAB PO SCH (20:29)
[2018-12-14] MEDS: Ezetimibe 10 MG TAB PO SCH (20:29)
[2018-12-14] MEDS: Fenofibrate Nanocrystallized 145 MG TAB PO SCH (20:30)
[2018-12-14] MEDS: Escitalopram Oxalate 20 mg Tablet PO SCH (20:30)
--- NOTE | 2018-12-14 21:28 | CON ---
DATE OF CONSULTATION: 12/14/2018 CONSULTING PHYSICIAN: Hospitalist Service. HISTORY OF PRESENT ILLNESS: Mr. Clay was admitted due to appearing to be more weak than his normal. His baseline is that he spends most of his time in a wheelchair. He is usually able to walk short distances. He got up and felt weaker than normal. The nurse called for an ambulance and brought him in. He was found to have 4+ bacteria in his urine. His white count was elevated. He has been started on antibiotics. He had an MRI of the brain since admission, which did not show any active evidence of inflammation from his multiple sclerosis. It has been a chronic progressive phase of MS now for the last few years. We have been discussing an outpatient treatment plan that is now available. It is not an emergent treatment that we would institute. He is complaining of an umbilical hernia that he would like to have addressed as well. I will be happy to follow up with him in the office. Job ID: [id number]
[2018-12-15] MEDS: Gabapentin 300 MG CAP PO SCH ×3 (00:37→11:39)
[2018-12-15] MEDS: Piperacillin/Tazobactam 4.5 GM in Sodium Chloride 0.9% 100 ML IVPB SCH ×3 (00:40→11:39)
[2018-12-15 06:43] LABS: #Basophils 0.1 thou/uL (0.0-0.2); #Eosinphils 0.5 thou/uL (0.0-0.7); #Lymphocytes 1.7 thou/uL (1.20-3.40); #Monocytes 0.4 thou/uL (0.11-0.59); #Neutrophils 5.8 thou/uL (1.40-6.50); %Basophils 0.6 % (0.0-1.0); %Lymphocytes 20.3 % (21.0-51.0); %Neutrophils 68.1 % (42.0-75.0); Hemoglobin 10.4 g/dL (14.0-18.0); Mean Corpuscular Hemoglobin 29.4 pg (27.0-31.0); Mean Corpuscular Volume 94.7 fL (78.0-98.0); Platelet Count 300 thou/uL (130-400); RBC Distribution Width 12.3 % (11.5-14.5); Red Blood Cell (RBC) Count 3.55 mill/uL (4.70-6.10); White Blood Cell (WBC) Count 8.5 thou/uL (4.8-10.8)
[2018-12-15 07:03] LABS: Lactic Acid 1.6 mmol/L (0.5-2.2)
[2018-12-15 07:05] LABS: Vancomycin, Trough 20.5 ug/mL
[2018-12-15 07:12] LABS: ALT (SGPT) 14 U/L (8-55); AST (SGOT) 13 U/L (5-34); Albumin 3.6 g/dL (3.5-5.0); Alkaline Phosphatase 61 U/L (40-110); Anion Gap 10 mmol/L (10-20); BUN (Urea Nitrogen) 15 mg/dL (8.4-25.7); Bilirubin, Total 0.2 mg/dL (0.2-1.2); Calc. Creatinine Clearance 108 mL/min (70-130); Calcium 8.3 mg/dL (7.8-10.44); Carbon Dioxide 29 mmol/L (22-29); Chloride 105 mmol/L (98-107); Estimated GFR-MDRD 74; Globulin 3.3 g/dL (2.4-3.5); Glucose 113 mg/dL (70-105); Potassium 4.3 mmol/L (3.5-5.1); Protein, Total 6.9 g/dL (6.0-8.3); Sodium 140 mmol/L (136-145)
[2018-12-15] MEDS: Vancomycin 1.5 GRAM/300 ML BAG 1.5 GM in Premix Bag 1 BAG IVPB SCH (08:37)
[2018-12-15] MEDS: Aspirin 325 mg Enteric Coated Tablet PO SCH (08:39)
[2018-12-15] MEDS: Levothyroxine Sodium 25 MCG TAB PO SCH (08:40)
[2018-12-15] MEDS: Apixaban 5 MG TAB PO SCH (08:40)
[2018-12-15] MEDS: Famotidine 20 MG TAB PO SCH (08:40)
[2018-12-15] MEDS: carBAMazepine 200 MG TAB PO SCH (08:40)
[2018-12-15] MEDS: Baclofen 10 MG TAB PO SCH (08:40)
[2018-12-15] MEDS: Multivit, Therapeutic 1 TAB PO SCH (08:40)
[2018-12-15] MEDS: Nystatin Ointment 15 GM TUBE TOP SCH (08:41)
[2018-12-15] MEDS: Artificial Tears 18 DROP/0.9 ML EA EYE SCH ×2 (08:42→12:44)
[2018-12-15] MEDS: Diclofenac Sodium 50 MG DR TAB PO SCH (08:42)
[2018-12-15] MEDS: cycloSPORINE 0.05% Ophthalmic Droperette EA EYE SCH (08:51)
[2018-12-15] MEDS: Dutasteride 0.5 MG CAP PO SCH (09:17)
--- NOTE | 2018-12-15 10:26 | PDOC.HOSPP ---
- Subjective Encounter Date: 12/15/18 Encounter Time: 09:00 Subjective: Patient seen and examined. No new complaints. No overnight events - Objective Vital Signs & Weight: Vital Signs (12 hours) Temp Pulse Resp BP Pulse Ox 12/15/18 07:54 97.8 F 75 20 149/85 H 95 12/15/18 05:17 97.8 F 75 18 131/80 93 L 12/15/18 00:44 98.0 F 75 18 152/85 H 92 L Weight Weight 220 lb 14.4 oz I&O: 12/14/18 12/15/18 12/16/18 06:59 06:59 06:59 Intake Total 2135 3050 Output Total 2450 Balance 2135 600 Result Diagrams: 12/15/18 06:29 12/15/18 06:29 Hospitalist ROS - Review of Systems Eyes: denies: pain, vision change, conjunctivae inflammation, eyelid inflammation, redness, other ENT: denies: ear pain, ear discharge, nose pain, nose discharge, nose congestion , mouth pain, mouth swelling, throat pain, throat swelling, other Respiratory: denies: cough, dry, shortness of breath, hemoptysis, SOB with excertion, pleuritic pain, sputum, wheezing, other Cardiovascular: denies: chest pain, palpitations, orthopnea, paroxysmal noc. dyspnea, edema, light headedness, other Gastrointestinal: denies: nausea, vomiting, abdominal pain, diarrhea, constipation, melena, hematochezia, other Genitourinary: denies: dysuria, frequency, incontinence, hematuria, retention, other Musculoskeletal: denies: neck pain, shoulder pain, arm pain, back pain, hand pain, leg pain, foot pain, other - Medication Medications: Active Medications Generic Name Dose Route Start Last Admin Trade Name Freq PRN Reason Stop Dose Admin Apixaban 5 mg 12/13/18 21:00 12/15/18 08:40 Eliquis PO 5 mg BID DONNY Administration Artificial Tears 2 drop 12/13/18 21:00 12/15/18 08:42 Tears Naturale EA EYE 2 drop QID DONNY Administration Aspirin 325 mg 12/14/18 09:00 12/15/18 08:39 Ecotrin PO 325 mg DAILY DONNY Administration Baclofen 10 mg 12/13/18 21:00 12/15/18 08:40 Lioresal PO 10 mg BID DONNY Administration Carbamazepine 400 mg 12/13/18 21:00 12/15/18 08:40 Tegretol PO 400 mg BID DONNY Administration Cyclosporine 0 ml 12/13/18 21:00 12/15/18 08:51 Restasis EA EYE 1 ml BID DONNY Administration Diclofenac Sodium 50 mg 12/13/18 21:00 12/15/18 08:42 Voltaren PO 50 mg TID DONNY Administration Dutasteride 0.5 mg 12/14/18 09:00 12/15/18 09:17 Avodart PO 0.5 mg DAILY DONNY Administration Ezetimibe 10 mg 12/13/18 21:00 12/14/18 20:29 Zetia PO 10 mg HS DONNY Administration Escitalopram Oxalate 20 mg 12/13/18 21:00 12/14/18 20:30 Lexapro PO 20 mg HS DONNY Administration Famotidine 20 mg 12/13/18 21:00 12/15/18 08:40 Pepcid PO 20 mg BID DONNY Administration Fenofibrate 145 mg 12/13/18 21:00 12/14/18 20:30 Tricor PO 145 mg HS DONNY Administration Gabapentin 600 mg 12/13/18 23:59 12/15/18 05:38 Neurontin PO 600 mg Q6HR DONNY Administration Piperacillin Sod/Tazobactam 100 mls @ 200 mls/hr 12/13/18 23:59 12/15/18 05: 39 Sod 4.5 gm/ Sodium Chloride IVPB 100 mls Q6HR DONNY Administration VANCOMYCIN 1.5 GRAM/300 ML BAG 300 mls @ 200 mls/hr 12/13/18 20:00 12/15/18 08:37 1.5 gm/ Device IVPB 300 mls DONNY Administration Levothyroxine Sodium 25 mcg 12/14/18 09:00 12/15/18 08:40 Synthroid PO 25 mcg DAILY DONNY Administration Multivitamins 1 tab 12/14/18 09:00 12/15/18 08:40 Theragran PO 1 tab DAILY DONNY Administration Nystatin 0 gm 12/14/18 09:00 12/15/18 08:41 Mycostatin Ointment TOP 1 applic BID DONNY Administration Pravastatin Sodium 40 mg 12/13/18 21:00 12/14/18 20:29 Pravachol PO 40 mg HS DONNY Administration Sodium Chloride 10 ml 12/13/18 20:21 12/15/18 08:38 Flush - Normal Saline IVF 10 ml PRN PRN Administration Saline Flush Verapamil HCl 360 mg 12/13/18 21:00 12/14/18 22:00 Calan Er PO 360 mg HS DONNY Administration - Exam General Appearance: NAD, awake alert Eye: PERRL, anicteric sclera ENT: normocephalic atraumatic, no oropharyngeal lesions Neck: supple, symmetric, no JVD Heart: RRR, no murmur, no gallops, no rubs Respiratory: CTAB, no wheezes, no rales, no ronchi Gastrointestinal: soft, non-tender, non-distended, normal bowel sounds Gastrointestinal - other findings: umbilical hernia noted, reducible but skin overlying is erythematous, Extremities: no cyanosis, no clubbing Skin: normal turgor, no lesions Neurological: no new deficit Musculoskeletal: normal tone, normal strength Psychiatric: normal affect, normal behavior, A&O x 3 Hosp A/P (1) Bandemia Code(s): D72.825 - BANDEMIA Status: Acute (2) Obesity (BMI 30.0-34.9) Code(s): E66.9 - OBESITY, UNSPECIFIED Status: Chronic (3) Physical deconditioning Code(s): R53.81 - OTHER MALAISE Status: Chronic (4) Chronic progressive multiple sclerosis Code(s): G35 - MULTIPLE SCLEROSIS Status: Chronic (5) HTN (hypertension) Code(s): I10 - ESSENTIAL (PRIMARY) HYPERTENSION Status: Chronic Qualifiers: Hypertension type: essential hypertension Qualified Code(s): I10 - Essential (primary) hypertension (6) Hypothyroidism Code(s): E03.9 - HYPOTHYROIDISM, UNSPECIFIED Status: Chronic Qualifiers: Hypothyroidism type: unspecified Qualified Code(s): E03.9 - Hypothyroidism , unspecified (7) DEMI (acute kidney injury) Code(s): N17.9 - ACUTE KIDNEY FAILURE, UNSPECIFIED Status: Acute (8) Anemia, normocytic normochromic Code(s): D64.9 - ANEMIA, UNSPECIFIED Status: Chronic (9) Dyslipidemia Code(s): E78.5 - HYPERLIPIDEMIA, UNSPECIFIED Status: Chronic (10) Chronic anticoagulation Code(s): Z79.01 - WORLD TRAVEL COUNSELOR (CURRENT) USE OF ANTICOAGULANTS Status: Chronic (11) Anxiety and depression Code(s): F41.9 - ANXIETY DISORDER, UNSPECIFIED; F32.9 - MAJOR DEPRESSIVE DISORDER, SINGLE EPISODE, UNSPECIFIED Status: Chronic (12) BPH (benign prostatic hyperplasia) Code(s): N40.0 - BENIGN PROSTATIC HYPERPLASIA WITHOUT LOWER URINRY TRACT SYMP Status: Chronic Qualifiers: Lower urinary tract symptom presence: symptoms absent Qualified Code(s): N40.0 - Benign prostatic hyperplasia without lower urinary tract symptoms - Plan old records reviewed/req, continue antibiotics, social director 12/14/18- continue IVF, as pt has abdominal pain and has bandemia, will get CT abdomen and pelvis, MRI brain ordered for his MS, neurology consulted, home medication reviewed and symptomatic treatment, will monitor one night and repeat labs tomorrow, he is on current empiric zosyn and vancomycin but source of infection unclear 12/15/18, will change antibiotic to augmentin and doxy for penniculitis, stable for discharge, tried to call daughter but unable to reach, see discharge tanmay
--- NOTE | 2018-12-15 11:30 | DIS ---
DATE OF ADMISSION: 12/13/2018 DATE OF DISCHARGE: 12/15/2018 PRIMARY CARE PHYSICIAN: [facility] Call Admission. DISCHARGE DISPOSITION: senior living home. PRIMARY DISCHARGE DIAGNOSES: 1. Umbilical hernia site panniculitis. 2. Mild acute kidney injury. 3. Urinary tract infection due to Enterococcus faecalis. SECONDARY DISCHARGE DIAGNOSES: 1. Obesity with BMI 34. 2. History of multiple sclerosis. 3. Anxiety and depression. 4. Dyslipidemia. 5. Chronic anticoagulation. 6. Benign enlargement of prostate. 7. Physical deconditioning. 8. Hypothyroidism. 9. Hypertension. DISCHARGE MEDICATIONS: 1. Augmentin 875 mg p.o. twice daily for 7 days (Augmentin is also treatment for UTI). 2. Doxycycline 100 mg twice daily for 7 days. 3. Continue following medications;. a. Gabapentin 600 mg p.o. q.6 hourly. b. Zofran 4 mg q.8 hourly p.r.n. c. Tylenol 650 mg q.4 hourly p.r.n. d. Eliquis 5 mg p.o. b.i.d. e. Artificial Tears q.i.d. f. Aspirin 325 mg daily. g. Azelastine nasal spray b.i.d. h. Baclofen 10 mg b.i.d. i. Tegretol 400 mg b.i.d. j. Benadryl 25 mg q.6 hourly p.r.n. k. Colace 240 mg p.o. daily. l. Lexapro 20 mg p.o. at bedtime. m. Aptiom 400 mg daily. n. Zetia 10 mg p.o. at bedtime. o. Fenofibrate 145 mg p.o. at bedtime. p. Synthroid 25 mcg daily. q. Multivitamin one tablet p.o. daily. r. Nystatin topical application b.i.d. p.r.n. s. Pravastatin 40 mg p.o. at bedtime. t. Verapamil SR 360 mg p.o. at bedtime. u. Avodart 0.5 mg p.o. daily. CONTRAINDICATION: None. CODE STATUS: Full code. INPATIENT LUMP RECEIVER: Clifford Jean MD ALLERGIES: MOE INHIBITOR. DISCHARGE PLAN: Posthospital, the patient is discharged back to senior care and subsequently, the patient will need follow up with Surgery for umbilical hernia repair. HOSPITAL COURSE: A 58-year-old male, who was sent from senior care. The patient was admitted by Arline Saucedo. Please see her H and P for further details. The patient was found with leukocytosis and bandemia, but obvious source was not clear. His urine was clean, and chest x-ray was unremarkable. The patient was complaining of abdominal umbilical hernia site pain and that is why we did a CT abdomen and pelvis, which showed finding suggestive of panniculitis without any acute process. Next day, leukocytosis resolved and we changed antibiotic therapy to Augmentin and doxycycline. His urine is also growing Enterococcus faecalis and ampicillin sensitive and that is why we are expecting that Augmentin will cover that as well. Neurology evaluated this patient and they do not have any new recommendation during this admission. The patient was hydrated while in the hospital. The patient is back to normal and stable for discharge. Paperwork for discharge done. Discharge medication reconciliation done. The patient was on observation status during this admission. Job ID: [id number]
[2018-12-15 12:26] VITALS: TEMP 97.7
[2018-12-15 13:59] VITALS: BP 164/90
== END 2018-12-15 15:00 ==
LOC: ERS 13:43 → T4-B 18:40
PROVIDERS: ADMIT Internal Medicine; ATTEND Internal Medicine
DX: K42.9 Umbilical hernia without obstruction or gangrene (principal); M79.3 Panniculitis, unspecified; N17.9 Acute kidney failure, unspecified; N39.0 Urinary tract infection, site not specified; B95.2 Enterococcus as the cause of diseases classified elsewhere; N40.0 Benign prostatic hyperplasia without lower urinary tract symptoms; I10 Essential (primary) hypertension; E03.9 Hypothyroidism, unspecified; E78.5 Hyperlipidemia, unspecified; G35 Multiple sclerosis; E66.9 Obesity, unspecified; D72.829 Elevated white blood cell count, unspecified; G40.909 Epilepsy, unspecified, not intractable, without status epilepticus; F41.9 Anxiety disorder, unspecified; F32.9 Major depressive disorder, single episode, unspecified; Z68.34 Body mass index [BMI] 34.0-34.9, adult; Z79.01 Long term (current) use of anticoagulants; Z79.82 Long term (current) use of aspirin; Z79.899 Other long term (current) drug therapy; Z99.3 Dependence on wheelchair
CPT/HCPCS: 51701; 70553; 71045; 74177; 80053; 80202; 82550; 83605 ×2; 83735; 84484; 85025; 87040; 87077; 87086; 87186; 93005; 96365; 96366 ×3; 96367; 96376; 97139 ×4; 97530; 99285; G0378 ×4; 36415; 81003; 81015; 84443; 85060; J2543; J3490; Q9967

== ENCOUNTER 2019-01-15 14:35 | Emergency (ER) | payer MEDICARE, OTHER ==
[2019-01-15] MEDS ORDERED: Ketorolac Tromethamine 30 MG/ML VIAL ONE (16:29)
--- NOTE | 2019-01-15 16:56 | CT ---
CT Brain WO Con History: Headache Comparison: CT brain January 2018 Findings: Left frontal craniotomy defect with encephalomalacia in the left frontal lobe. No acute hem orrhage or infarct. Extensive white matter disease. Ventricular size is similar. Paranasal sinuses and mastoids are clear. Impression: Chronic findings. No acute intracranial abnormality.
== END 2019-01-15 17:30 | disposition home or self-care (01) ==
LOC: ERS 14:35
DX: G50.0 Trigeminal neuralgia (principal); H60.92 Unspecified otitis externa, left ear; E78.5 Hyperlipidemia, unspecified; E03.9 Hypothyroidism, unspecified; I10 Essential (primary) hypertension; F32.9 Major depressive disorder, single episode, unspecified
CPT/HCPCS: 70450; 96372; J1885

== ENCOUNTER 2019-01-23 19:53 | Observation (INO) | payer MEDICARE, OTHER ==
[~2019-01-23 19:53] MED LIST: Iopamidol-370 76% 500 ML 1 ML ONE
[2019-01-23 20:45] LABS: #Basophils 0.1 thou/uL (0.0-0.2); #Eosinphils 0.4 thou/uL (0.0-0.7); #Lymphocytes 2.1 thou/uL (1.20-3.40); #Monocytes 0.4 thou/uL (0.11-0.59); #Neutrophils 4.7 thou/uL (1.40-6.50); %Basophils 1.1 % (0.0-1.0); %Eosinophils 5.6 % (0.0-10.0); %Lymphocytes 26.9 % (21.0-51.0); %Monocytes 4.8 % (0.0-10.0); %Neutrophils 61.6 % (42.0-75.0); Hemoglobin 13.1 g/dL (14.0-18.0); Mean Corpuscular HGB CONC 33.2 g/dL (32.0-36.0); Mean Corpuscular Hemoglobin 30.3 pg (27.0-31.0); Mean Corpuscular Volume 91.3 fL (78.0-98.0); Mean Platelet Volume 7.2 fL (7.4-10.4); Platelet Count 375 thou/uL (130-400); RBC Distribution Width 12.7 % (11.5-14.5); Red Blood Cell (RBC) Count 4.32 mill/uL (4.70-6.10); White Blood Cell (WBC) Count 7.7 thou/uL (4.8-10.8)
[2019-01-23] MEDS ORDERED: Morphine 4 MG/ML VIAL ONE ×2 (20:56→22:06)
[2019-01-23] MEDS ORDERED: Ondansetron PF 4 MG/2 ML Vial ONE (20:57)
[2019-01-23] MEDS ORDERED: Labetalol HCl 100 MG/20 ML VIAL ONE (20:57)
--- NOTE | 2019-01-23 21:01 | RAD ---
AP CHEST: 01/23/19 HISTORY: Hypertension, pain. Lungs are clear. Vasculature normal. Heart size is within normal range. IMPRESSION: Unremarkable chest. POS: OFF
[2019-01-23 21:06] LABS: ALT (SGPT) 13 U/L (8-55); AST (SGOT) 19 U/L (5-34); Albumin 4.4 g/dL (3.5-5.0); Alkaline Phosphatase 75 U/L (40-110); Anion Gap 11 mmol/L (10-20); BUN (Urea Nitrogen) 19 mg/dL (8.4-25.7); Bilirubin, Total 0.3 mg/dL (0.2-1.2); Calc. Creatinine Clearance 0 mL/min (70-130); Calcium 9.2 mg/dL (7.8-10.44); Carbon Dioxide 27 mmol/L (22-29); Chloride 101 mmol/L (98-107); Estimated GFR-MDRD 88; Globulin 3.6 g/dL (2.4-3.5); Glucose 87 mg/dL (70-105); Potassium 4.2 mmol/L (3.5-5.1); Sodium 135 mmol/L (136-145)
--- NOTE | 2019-01-23 21:41 | CT ---
CT head without contrast: Multiple axial tomograms obtained through the head without IV enhancement. INDICATIONS: Headache COMPARISON: CT head 01/15/2019 FINDINGS: Ventricles have normal size and position. Left frontal lobe craniotomy changes are again noted, stable from recent exam. Mild chronic ischemic white matter changes again noted. No evidence of intracranial mass, hemorrhage, edema, or infarct. Visualized sinuses and mastoids appear clear. No interval change. IMPRESSION: No acute finding
--- NOTE | 2019-01-23 21:44 | CT ---
CT facial bones: Multiple axial tones obtained through facial bones with IV contrast. Multiplanar reconstruction. INDICATIONS:Facial pain. Assess for abscess. COMPARISON:None FINDINGS: Nasal bones appear intact. Orbits appear intact. zygoma appear intact. Paranasal sinuses are well aerated. Maxilla appears intact. Mandible appears intact. Soft tissues appear unremarkable. No evidence of abscess or inflammatory process. IMPRESSION: No acute finding
[2019-01-23] MEDS ORDERED: carBAMazepine 200 MG TAB PO SCH (22:15)
[2019-01-24] MEDS ORDERED: Morphine 2 MG/ML SYRINGE SLOW IVP PRN (01:05)
[2019-01-24] MEDS ORDERED: HYDROcodone/Acetaminophen 5/325 mg Tablet PO PRN (01:25)
[2019-01-24] MEDS ORDERED: Acetaminophen 325 MG TAB PO PRN (01:25)
[2019-01-24] MEDS ORDERED: Ondansetron PF 4 MG/2 ML Vial IVP PRN (01:25)
[2019-01-24] MEDS ORDERED: Bisacodyl 5 MG TAB PO PRN (01:25)
[2019-01-24] MEDS ORDERED: hydrALAZINE 20 MG/ML VIAL SLOW IVP PRN ×2 (01:28→02:34)
[2019-01-24] MEDS ORDERED: Sodium Chloride 0.9% 1,000 ML IV SCH (01:30)
[2019-01-24] MEDS ORDERED: Bacteriostatic Water 30 ML VIAL FS PRN (01:48)
[2019-01-24] MEDS ORDERED: Labetalol HCl 100 MG/20 ML VIAL SLOW IVP PRN (02:35)
--- NOTE | 2019-01-24 02:37 | PDOC.BPN ---
- Brief Progress Note Addendum to HPI patient also noted with elevated BP with systolic up to 290/120 in the ER . he has been given labatalola and hydralazine with slow improvement . will add po minoxidil now .
[2019-01-24] MEDS ORDERED: Minoxidil 2.5 MG TAB PO SCH ×2 (02:45→09:00)
[2019-01-24] MEDS: methylPREDNISolone Sod Succ/PF 125 MG/2 ML VIAL IVP SCH ×3 (02:58→13:58)
[2019-01-24] MEDS: Gabapentin 300 MG CAP PO SCH ×3 (02:58→13:58)
[2019-01-24] MEDS ORDERED: Morphine 2 MG/ML SYRINGE SLOW IVP SCH (03:00)
[2019-01-24] MEDS ORDERED: Labetalol HCl 100 MG/20 ML VIAL SLOW IVP SCH (03:00)
--- NOTE | 2019-01-24 03:45 | HP ---
PRESENTING COMPLAINT: Facial and right eye pain. HISTORY OF PRESENTING COMPLAINT: Mr. Obed Foss is a 58-year-old male with past medical history of multiple sclerosis, relatively stable, being scheduled for a new outpatient therapy; hypertension, history of trigeminal neuralgia, history of seizures, and brain abscess, who presented today because of complaining of facial pain. The patient has initially complained to the ED physician of pain around his jaw. However, he was still able to talk, but states the pain is worse whenever he talks. However, at the time of my interview with him, the patient complained of pain in his right eye. He is also stating it has been around his jaw and he is able to tell me "I can't talk because of pain in my mouth." However, his pain does not seems to worsen whenever he opens his mouth, he states. He rates pain is eye at about 10/10. The patient is in severe pain distress and refusing further interview. He is, however, reluctantly answering yes to some questions. History limited due to patient's pain and refusal to cooperate. Review of patient records showed the patient was in the ED one week ago for similar pain symptoms. An MRI he did one month ago for progressive weakness did show apparent stable changes of multiple sclerosis. PAST MEDICAL HISTORY: Significant for hypertension, hyperlipidemia, brain abscess, trigeminal neuralgia, generalized seizures, history of multiple sclerosis, history of carpal tunnel, history of hypertension, hypothyroidism, hyperlipidemia, history of depression, history of BPH, and history of chronic anticoagulation. PAST SURGICAL HISTORY: Includes craniotomy for brain abscess, history of cholecystectomy, history of neck, shoulder, and carpal tunnel release. REVIEW OF SYSTEMS: Poor, given the patient's pain distress, but denies every other systems x10. SOCIAL HISTORY: From review of record, the patient lives in [facility]. Denies any history of alcohol or tobacco use. ALLERGIES: MOE INHIBITORS. HOME MEDICATION: See extensive medication list. PHYSICAL EXAMINATION: VITAL SIGNS: Current vitals, blood pressure of 153/105, pulse of 82, respiratory rate of 18, O2 sat 95% on room air. Temperature afebrile. GENERAL: Obese, middle-aged male in significant pain distress, using hands to clutch the right eye. HEENT: Head is atraumatic, normocephalic. No significant erythema of the right eye. No conjunctival injections. Dry oral mucosa. NECK: No JVD. No carotid bruit. RESPIRATORY: Good air entry. No crepitation. CARDIOVASCULAR: S1, S2. Rate and rhythm regular. GI: Abdomen full, soft, nontender. Bowel sounds positive. EXTREMITIES: No pedal edema. No calf tenderness. NEURO: The patient is conversant. No neurological focal motor deficit. LABORATORY DATA: WBC 7.7, platelet 375, hemoglobin 13, neutrophils . No bands. Sodium 135, potassium 4.2, bicarb 27, creatinine 0.8. AST and alkaline phosphatase normal. BNP 21. IMAGING DATA: Chest x-ray shows no acute intrathoracic abnormality. Brain CT shows stable ventricles. Left frontal lobe craniotomy. Mild chronic ischemic changes with no new acute findings. Facial bone CT does not show any pathology. EKG showed normal sinus rhythm at 81 beats per minute. IMPRESSION: 1. Right ocular area pain. 2. Facial pain from trigeminal neuralgia, uncontrolled. 3. History of multiple sclerosis. 4. Hypertension. PLAN: We will admit the patient to observation. We will manage the patient for the following; 1. Right eye pain with facial pain, may be due to worsening of multiple sclerosis. We will hold off repeat MRI since MRI from one month ago was stable. We will start the patient on IV steroids, Tegretol, as well as pain control with morphine as tolerated. We will also initiate the patient on Neurontin for trigeminal neuralgia symptoms. We will consult Neurology in a.m. Last seen by Dr. Clifford Jean. 2. Hypertension. Resume home regimen. 3. DVT prophylaxis. Continue chronic anticoagulation. 4. Advance directive, deferred. The patient not willing to talk at this time. 5. History of seizure, stable. Continue Tegretol dosing. Total time spent in review of record, discussion, and evaluation greater than 60 minutes. Job ID: [id number]
[2019-01-24 05:17] LABS: #Lymphocytes 0.8 thou/uL (1.20-3.40); #Monocytes 0.1 thou/uL (0.11-0.59); #Neutrophils 9.6 thou/uL (1.40-6.50); %Basophils 0.2 % (0.0-1.0); %Eosinophils 0.3 % (0.0-10.0); %Lymphocytes 7.7 % (21.0-51.0); %Monocytes 1.2 % (0.0-10.0); %Neutrophils 90.6 % (42.0-75.0); Hemoglobin 12.6 g/dL (14.0-18.0); Mean Corpuscular HGB CONC 32.6 g/dL (32.0-36.0); Mean Corpuscular Hemoglobin 29.8 pg (27.0-31.0); Mean Corpuscular Volume 91.4 fL (78.0-98.0); Mean Platelet Volume 7.3 fL (7.4-10.4); Platelet Count 403 thou/uL (130-400); RBC Distribution Width 12.7 % (11.5-14.5); Red Blood Cell (RBC) Count 4.23 mill/uL (4.70-6.10); White Blood Cell (WBC) Count 10.5 thou/uL (4.8-10.8)
[2019-01-24 05:34] LABS: Anion Gap 13 mmol/L (10-20); BUN (Urea Nitrogen) 23 mg/dL (8.4-25.7); Calc. Creatinine Clearance 0 mL/min (70-130); Calcium 9.1 mg/dL (7.8-10.44); Carbon Dioxide 24 mmol/L (22-29); Chloride 103 mmol/L (98-107); Estimated GFR-MDRD 73; Glucose 127 mg/dL (70-105); Potassium 4.3 mmol/L (3.5-5.1); Sodium 136 mmol/L (136-145)
[2019-01-24] MEDS ORDERED: Levothyroxine Sodium 25 MCG TAB PO SCH (06:00)
[2019-01-24] MEDS: HYDROcodone/Acetaminophen 7.5/325 mg Tablet PO PRN ×3 (07:28→17:12)
[2019-01-24] MEDS ORDERED: NIFEdipine XL 60 MG TAB PO SCH (08:00)
[2019-01-24] MEDS ORDERED: Apixaban 5 MG TAB PO SCH (09:00)
[2019-01-24] MEDS ORDERED: Dutasteride 0.5 MG CAP PO SCH (09:00)
[2019-01-24] MEDS ORDERED: Aspirin 325 mg Enteric Coated Tablet PO SCH (09:00)
[2019-01-24] MEDS ORDERED: AZELASTINE 0.05% EA EYE SCH (09:00)
[2019-01-24] MEDS ORDERED: Ketotifen Fumarate 0.025% Ophth Soln 5 ml Bottle EA EYE SCH (09:00)
[2019-01-24] MEDS ORDERED: Baclofen 10 MG TAB PO SCH (09:00)
[2019-01-24] MEDS ORDERED: ESLICARBAZEPINE ACETATE 400 MG PO SCH (09:00)
[2019-01-24] MEDS ORDERED: carBAMazepine 200 MG TAB PO SCH (09:00)
[2019-01-24] MEDS ORDERED: Metoprolol Tartrate 50 MG TAB PO SCH (09:00)
--- NOTE | 2019-01-24 09:24 | PDOC.HOSPP ---
- Subjective Encounter Date: 01/24/19 Encounter Time: 10:30 Subjective: Patient with persistent right orbital and right facial pain, better after Morphine, Tegretol restarted. No other complaints. - Objective Vital Signs & Weight: Vital Signs (12 hours) Temp Pulse Resp BP BP BP Pulse Ox 01/24/19 08:29 102 H 145/79 H 01/24/19 07:23 98.4 F 104 H 16 179/79 H 92 L 01/24/19 04:00 97.4 F L 94 18 188/105 H 93 L 01/24/19 03:07 106 H 244/120 H 01/24/19 01:48 94 241/121 H 01/24/19 01:01 212/103 H 01/24/19 00:50 98.2 F 95 18 220/131 H 93 L I&O: 01/23/19 01/24/19 01/25/19 06:59 06:59 06:59 Intake Total 400 Balance 400 Result Diagrams: 01/24/19 04:19 01/24/19 04:19 Additional Labs: Accuchecks 01/24/19 01:36 POC Glucose 113 H Hospitalist ROS - Review of Systems Eyes: reports: pain Respiratory: denies: cough, shortness of breath Cardiovascular: denies: chest pain, palpitations Gastrointestinal: denies: nausea, vomiting, abdominal pain Neurological: denies: weakness - Medication Medications: Active Medications Generic Name Dose Route Start Last Admin Trade Name Freq PRN Reason Stop Dose Admin Hydrocodone Bitart/Acetaminophen 1 tab 01/24/19 01:25 01/24/19 07:28 [place] 7.5/325 PO 1 tab Q4H PRN Administration Moderate Pain (4-6) Apixaban 5 mg 01/24/19 09:00 01/24/19 08:29 Eliquis PO 5 mg BID DONNY Administration Aspirin 325 mg 01/24/19 09:00 01/24/19 08:29 Ecotrin PO 325 mg DAILY DONNY Administration Baclofen 10 mg 01/24/19 09:00 01/24/19 08:29 Lioresal PO 10 mg BID DONNY Administration Carbamazepine 400 mg 01/24/19 09:00 01/24/19 08:29 Tegretol PO 400 mg BID DONNY Administration Dutasteride 0.5 mg 01/24/19 09:00 01/24/19 08:29 Avodart PO 0.5 mg DAILY DONNY Administration Gabapentin 600 mg 01/24/19 02:00 01/24/19 08:28 Neurontin PO 600 mg 0200,08, DONNY Administration Levothyroxine Sodium 25 mcg 01/24/19 06:00 01/24/19 07:26 Synthroid PO 25 mcg 0600 DONNY Administration Methylprednisolone Sodium Succinate 125 mg 01/24/19 02:00 01/24/19 08:29 Solu-Medrol IVP 125 mg 0200,08, DONNY Administration Metoprolol Tartrate 50 mg 01/24/19 09:00 01/24/19 08:29 Lopressor PO 50 mg BID DONNY Administration Nifedipine 60 mg 01/24/19 08:00 01/24/19 08:29 Procardia Xl PO 01/24/19 10:00 60 mg NOW DONNY Administration Sodium Chloride 10 ml 01/24/19 09:00 01/24/19 08:30 Flush - Normal Saline IVF 10 ml Q12HR DONNY Administration Sodium Chloride 10 ml 01/24/19 01:06 01/24/19 03:08 Flush - Normal Saline IVF 10 ml PRN PRN Administration Saline Flush - Exam General Appearance: NAD Eye: anicteric sclera Heart: RRR, no murmur, no gallops, no rubs Respiratory: CTAB, no wheezes, no rales, no ronchi Gastrointestinal: soft, non-tender Neurological: cranial nerve grossly intact Psychiatric: normal affect, normal behavior Hosp A/P (1) Trigeminal neuralgia Code(s): G50.0 - TRIGEMINAL NEURALGIA Status: Acute Plan: on steroids, morphine, and home tegretol, Dr. Jean consult (2) HTN (hypertension) Code(s): I10 - ESSENTIAL (PRIMARY) HYPERTENSION Status: Chronic Qualifiers: Hypertension type: essential hypertension Qualified Code(s): I10 - Essential (primary) hypertension Plan: BP improved control this morning (3) Multiple sclerosis Code(s): G35 - MULTIPLE SCLEROSIS Status: Chronic - Plan PT/OT
[2019-01-24] MEDS: Artificial Tears 18 DROP/0.9 ML EA EYE SCH ×3 (09:35→17:10)
[2019-01-24] MEDS: Morphine 2 MG/ML SYRINGE SLOW IVP PRN ×2 (09:36→13:55)
[2019-01-24 12:55] VITALS: BMI 32.8
[2019-01-24] MEDS ORDERED: Lacosamide 50 mg Tablet PO SCH ×2 (13:15→21:00)
[2019-01-24 15:48] VITALS: BP 130/67; TEMP 98.8
--- NOTE | 2019-01-24 16:49 | CON ---
DATE OF CONSULTATION: 01/24/2019 SERVICE: Nephrology. REASON FOR CONSULTATION: Uncontrolled hypertension. REQUESTING PHYSICIAN: Dr. Masood Bermudez. HISTORY OF PRESENT ILLNESS: A 58-year-old male with known history of multiple sclerosis, hypertension, trigeminal neuralgia, and seizure disorder, who was admitted due to worsening facial and right eye pain. The patient reportedly developed worsening facial and right eye pain since about 1 month ago, which persisted and actually got worse in the last few days despite treatment at home. He was also found to have uncontrolled high blood pressure with systolic blood pressures running above 180s and 200. Nephrology consult was requested to help with blood pressure management. The patient denied focal weakness, blurred vision, nausea, vomiting, diarrhea, constipation, abdominal pain, hematochezia, or hematemesis. The right facial and eye pain is episodic and is improved by closing the right eye. Pain is rated at 10/10 at its most severity. The patient recently had an MRI of the brain a month ago, which showed stable changes of multiple sclerosis. PAST MEDICAL HISTORY: 1. Hypertension. 2. Hyperlipidemia. 3. Trigeminal neuralgia. 4. Seizure disorder. 5. Multiple sclerosis. 6. Carpal tunnel syndrome. 7. Hypothyroidism. 8. Depression. 9. BPH. 10. DVT, on chronic anticoagulation. 11. Brain abscess, status post treatment. PAST SURGICAL HISTORY: 1. Craniotomy for brain abscess. 2. Cholecystectomy. 3. Neck surgery. 4. Shoulder surgery. 5. Carpal tunnel release. FAMILY HISTORY: Reviewed, but noncontributory. SOCIAL HISTORY: The patient lives in [facility]. He is not . Denied alcohol or recreational drug use or tobacco use. ALLERGIES: MOE INHIBITORS. HOME MEDICATIONS: 1. Gabapentin 600 mg q.6. 2. Zofran 4 mg q.8 p.r.n. 3. Eliquis 5 mg p.o. b.i.d. 4. Aspirin 325 mg p.o. daily. 5. Azelastine eye drop 1 drop to each eye b.i.d. 6. Baclofen 10 mg p.o. b.i.d. 7. Carbamazepine 400 mg p.o. b.i.d. 8. Diclofenac sodium 50 mg p.o. t.i.d. 9. Diphenhydramine 25 mg q.6 p.r.n. 10. Escitalopram 20 mg p.o. daily at bedtime. 11. Eslicarbazepine acetate 400 mg p.o. daily. 12. Zetia 10 mg p.o. daily at bedtime. 13. Fenofibrate 145 mg p.o. daily at bedtime. 14. Levothyroxine 25 mcg p.o. daily. 15. Multivitamin 1 capsule p.o. daily. 16. Oxcarbazepine 300 mg p.o. b.i.d. 17. Saccharomyces boulardii 250 mg p.o. b.i.d. 18. Simethicone 80 mg p.o. q.i.d. p.r.n. 19. Verapamil 360 mg p.o. daily at bedtime. 20. Avodart 0.5 mg p.o. daily. REVIEW OF SYSTEMS: Twelve-point review of systems performed was negative other than pertinent positives and negatives included in the history of present illness. PHYSICAL EXAMINATION: VITAL SIGNS: Temperature 98.4, pulse 104, respiratory rate 16, SpO2 of 92% on room air, blood pressure is 179/79. GENERAL: Male patient, in moderate painful distress. Afebrile. Anicteric. Acyanotic. The patient is closing right eye with his right hand due to pain. HEENT: Normocephalic and atraumatic. Oral mucosa is moist. NECK: Supple with no JVD. CARDIOVASCULAR: Regular rhythm and rate. GI: Full, soft, nontender, and nondistended with normal bowel sounds. EXTREMITIES: Trace to mild leg edema, more on the right noted. No erythema appreciated. AUTOMOTIVE [employer]LECT[employer]TER: Conscious, alert, and oriented x3. Cranial nerves 2 through 12 are grossly intact. The patient moves all extremities, but weakly. DIAGNOSTIC DATA: CBC showed WBC count of 10.5, hemoglobin of 12.6, MCV of 91.4, platelets of 403. BMP today showed sodium 136, potassium 4.3, chloride 103, CO2 of 24, BUN 23, creatinine 1.04, glucose 127, calcium 9.1. On presentation on January 23, the patient had sodium 135, potassium 4.2, chloride 101, CO2 of 27, BUN 19, creatinine 0.88, glucose 87, calcium 9.2, total bilirubin 0.3, AST 19, ALT 13, alkaline phosphatase 75, total protein 8.0, albumin 4.4, globulin 3.6. BNP was 21.8. Lactic acid was 1.4. Chest x-ray performed on presentation showed clear lungs with normal vasculature and heart size within normal limits. CT scan of the brain performed on presentation showed no acute finding. CT scan of the facial bone also showed intact orbits as well as nasal bones and zygoma with well-aerated paranasal sinuses. No acute finding was found. ASSESSMENT: 1. Right facial and eye pain: Concerning for trigeminal neuralgia. Neurology following. 2. Uncontrolled hypertension: Due to inadequate treatment as well as acute elevation due to acute pain. 3. Multiple sclerosis, on treatment. 4. Hypothyroidism, on treatment. 5. Physical deconditioning. PLAN: 1. We will discontinue minoxidil and verapamil. We will start the patient on nifedipine 60 mg daily as well as metoprolol 50 mg b.i.d., with a view to increasing dosages to get adequate BP control. 2. Adequate pain control will help BP control. We defer pain management to primary attending and Neurology. 3. We will monitor renal function closely. [place] oral intake advised. Many thanks for involving us in the care of this patient. We will follow along with you. Further treatment to follow depending on hospital course. Job ID: [id number]
[2019-01-24] MEDS ORDERED: Escitalopram Oxalate 20 mg Tablet PO SCH (21:00)
[2019-01-24] MEDS ORDERED: Ezetimibe 10 MG TAB PO SCH (21:00)
[2019-01-25] MEDS ORDERED: NIFEdipine XL 60 MG TAB PO SCH (09:00)
[2019-01-25] MEDS ORDERED: FLU VACC QS2019-20(6MOS UP)/PF 60 MCG/0.5 ML SYRINGE IM ONE (09:15)
== END 2019-01-24 18:23 ==
LOC: ERS 19:53 → 2SE 01-24 01:15
PROVIDERS: ADMIT Internal Medicine; ATTEND Internal Medicine
DX: H57.11 Ocular pain, right eye (principal); G50.0 Trigeminal neuralgia; G35 Multiple sclerosis; I10 Essential (primary) hypertension; E78.5 Hyperlipidemia, unspecified; E03.9 Hypothyroidism, unspecified; G40.909 Epilepsy, unspecified, not intractable, without status epilepticus; I82.409 Acute embolism and thrombosis of unspecified deep veins of unspecified lower extremity; F32.9 Major depressive disorder, single episode, unspecified; N40.0 Benign prostatic hyperplasia without lower urinary tract symptoms; R53.81 Other malaise; Z79.82 Long term (current) use of aspirin; Z79.01 Long term (current) use of anticoagulants; Z79.899 Other long term (current) drug therapy; Z88.8 Allergy status to other drugs, medicaments and biological substances
CPT/HCPCS: 70450; 70487; 71045; 80048; 80053; 82962; 83605; 83880; 85025 ×2; 93005; 96374; 96375 ×2; 96376 ×2; 97139 ×3; 99285; G0378 ×2; 36415; 36416; J0360; J2270; J2405; J2930; Q9967